=== PATIENT | female | born 1940 ===

== ENCOUNTER 2023-01-29 14:16 | Inpatient (IN) ==
[~2023-01-29 14:16] MED LIST: DEXAMETHASONE 10 MG/ML VIAL ONE; GLYCOPYRROLATE 0.2 MG/ML VIAL IV ONE; LIDOCAINE HCL/PF 100 MG/5 ML SYRINGE IV ONE; MIDAZOLAM 2 MG/2 ML VIAL ONE; NEOSTIGMINE 1 MG/ML VIAL ONE; ONDANSETRON 4 MG/2 ML VIAL ONE; PROPOFOL 200 MG/20 ML VIAL IV ONE; ROCURONIUM 10 MG/ML ML IV ONE; SUCCINYLCHOLINE 20 MG/ML ML IV ONE; fentaNYL 100 MCG/2 ML VIAL IV ONE
[2023-01-29] MEDS ORDERED: IOPAMIDOL 100 ML BOTTLE IV ONE (17:24)
[2023-01-29] MEDS: 0.9 % SODIUM CHLORIDE 1,000 ML IV SCH (17:46)
[2023-01-29] MEDS: metroNIDAZOLE 500 MG/100 ML BAG IV SCH ×2 (17:50→23:33)
--- NOTE | 2023-01-29 17:50 | General Surg History&Physical ---
HPI History of Present Illness Patient information: Note initiated : 01/29/23 at 5:33 pm Service Date, if different from initiated Date: [] Patient: Kathy Parks a 82 y/o F admitted on 01/29/23 for Bowel Obstruction. Chief Complaint: [] Chief complaint: Rectal carcinoma with colonic obstruction History of present illness: Ms. Parks is a 82 year old F transferred from [facility] for evaluation rectal obstruction due to carcinoma of the colon rectum. Patient has known carcinoma and has been treated at hospital in [facility] with radiation. The patient refused to take chemotherapy. She has been having problems with progressive constipation and states that she has not been able to have a bowel movement for 1-1/2 weeks. She has had increasing difficulty with abdominal distention and pain. She was treated at [facility] today with enemas and digital impaction without results. The patient is sent here for decompression colostomy as a palliative measure. She has known metastatic carcinoma to the liver and is felt to be unresectable. Patient and her daughter are counseled for the procedure and it will be performed tomorrow. Review of Systems All systems: reviewed and no additional remarkable complaints except as stated Gastrointestinal Gastrointestinal: Present abdominal pain, belching, bloating, change in bowel habits, change in stool character, constipation, cramping, hematemesis, hematochezia and nausea PFSH PFSH All Active Problems (Updated 01/29/23 @ 17:48 by René Yates MD) Liver metastases (Acute) Carcinoma of rectum, stage 4 (Acute) Colonic obstruction (Acute) Hypertension (Acute) Medical History (Updated 01/29/23 @ 17:48 by René Yates MD) Carcinoma of rectum, stage 4 History of CVA (cerebrovascular accident) History of DVT (deep vein thrombosis) History of pulmonary embolus (PE) Surgical History (Updated 01/29/23 @ 17:42 by René Yates MD) H/O: hysterectomy History of parathyroidectomy S/P appendectomy S/P insertion of IVC (inferior vena caval) filter Social History (Updated 01/29/23 @ 17:43 by René Yates MD) occupational status: retired smoking status: Never smoker alcohol intake frequency: does not drink substance use type: does not use MEDS/ALLERGIES Home Medications and Allergies Home Medications Medication Instructions Recorded Confirmed Type Lactobacillus rhamnosus GG 15 1 cap PO QDAY 01/29/23 01/29/23 History billion cell sprinkle capsule (Culturelle) amlodipine 10 mg tablet 5 mg PO QDAY 01/29/23 01/29/23 History aspirin 81 mg tablet,delayed 81 mg PO QDAY 01/29/23 01/29/23 History release famotidine 40 mg tablet 40 mg PO BID 01/29/23 01/29/23 History furosemide 40 mg tablet 40 mg PO QDAY 01/29/23 01/29/23 History hydrocodone 5 mg-acetaminophen 325 5 tab PO PRN PRN pain 01/29/23 01/29/23 History mg tablet losartan 50 mg tablet 50 mg PO QDAY 01/29/23 01/29/23 History omeprazole 20 mg capsule,delayed 20 mg PO QDAY 01/29/23 01/29/23 History release polysaccharide iron complex 150 mg 150 mg PO QDAY 01/29/23 01/29/23 History iron capsule (iFerex 150) pravastatin 20 mg tablet 20 mg PO HS 01/29/23 01/29/23 History tamsulosin 0.4 mg capsule 0.4 mg PO QDAY 01/29/23 01/29/23 History Allergies Allergy/AdvReac Type Severity Reaction Status Date / Time No Known Drug Allergies Allergy Unverified 01/29/23 16:19 Physical Examination Vital Signs Vital signs: Temp Pulse Resp BP Pulse Ox O2 Del Method 97.1 F 73 20 198/93 93 Room Air 01/29/23 17:00 01/29/23 17:00 01/29/23 17:00 01/29/23 17:00 01/29/23 17:00 01/29/23 17:00 General physical appearance General physical exam: well developed, well nourished, moderate distress and moderate pain Eyes Eye exam: PERRL and normal ocular movement; negative icteric ENT ENT exam: normal mucosa, no hearing loss and no congestion Head Head exam IM: Present atraumatic, normal inspection and normocephalic Neck Neck exam: no masses, no bruits, trachea midline, no lymphadenopathy and no venous distension Cardiovascular Cardiovascular exam IM: Present normal rate and rhythm, RRR, +S1 and +S2; Absent gallop or JVD Respiratory Respiratory exam: normal expansion, normal respiratory effort and clear to auscultation Abdomen Abdomen: Present tender, bowel sounds (high pitched) and distended (Massively distended) Integumentary Integumentary: Present no rash, no growths and no abnormal pigmentation Neurologic Neurologic: Present normal coordination and normal sensation Musculoskeletal Musculoskeletal: Absent normal gait (Gait assisted with walker) Psychiatric Psychiatric: Present oriented to time, oriented to person, oriented to place, speech is normal and memory intact Results Labs Labs: All other labs normal. A/P Assessment and plan (1) Colonic obstruction: Status: Acute (2) Carcinoma of rectum, stage 4: Status: Acute (3) Hypertension: Status: Acute (4) Liver metastases: Status: Acute Plan Patient is counseled for laparotomy with end colostomy and probable mucous fistula because of obstructing carcinoma of the rectum. If I can resect the colon close to the tumor a mucous fistula will not need to be performed. It is understood that this is a invasive procedure to relieve her total obstruction. Sepsis Sepsis Identified: No Time Spent With Patient Time: Total time spent is greater than 50% in coordination of care (as documented) at patient's floor/unit and/or counseling patient:
[2023-01-29] MEDS ORDERED: PIPERACILLIN SODIUM/TAZOBACTAM 3.375 GM in DEXTROSE 5% IN WATER 50 ML IV ONE (18:00)
--- NOTE | 2023-01-29 18:07 | XRay Report ---
CLINICAL INFORMATION: Preop COMPARISON: None. TECHNIQUE: Portable FINDINGS: The heart size, mediastinum and pulmonary vessels are unremarkable. Minor fibrosis and/or subsegmental atelectasis present in the lung bases.. There are no effusions. The bones and soft tissues are within normal limits. IMPRESSION: Normal chest. Interpreted and Authenticated by: Ady Steel 01/29/23
--- NOTE | 2023-01-29 18:22 | Cat Scan Report ---
CLINICAL INFORMATION: Abdominal pain and distention. COMPARISON: Abdomen and pelvic CT 07/20/2022 TECHNIQUE: Following enteric contrast, 80 cc of Isovue-370 were injected intravenously, and 60 seconds later, 0.625 mm helical slices were obtained from the mid heart through the subtrochanteric regions. Following reconstruction, 2.5 mm sagittal, coronal and axial reformatted images were processed and reviewed at bone, lung and soft tissue windows. Five minutes later, 0.625 mm helical slices were obtained from the mid heart through the kidneys and viewed at soft tissue windows.The exam was performed using radiation dose optimization techniques including, but not limited to, automated exposure control, adjustment of the mA and/or kV according to patient size and use of iterative reconstruction technique. FINDINGS: The lung bases show subsegmental atelectasis. The heart is moderately enlarged with extremely heavy calcific plaque in the proximal and mid LAD coronary arteries. There is also scattered calcific plaque throughout the remaining coronary arteries. Small pericardial effusion has developed since previous exam. Abdominal images show a new 9 cm inhomogeneously enhancing mass dominating the posterior segment right hepatic lobe. There is also a new 12 mm low-attenuation nodule in the subdiaphragmatic superior right hepatic lobe. Findings suspicious for metastases. A 19 mm solitary stone present within the gallbladder. Gallbladder and bile ducts are, otherwise, normal CBD is 5 mm. The 10 mm cyst in the posterior mid pancreatic body is unchanged. Pancreatic duct is normal. The spleen and adrenal glands are normal in size configuration and attenuation without focal lesion. Abdominal aorta contains plaque but is normal diameter. A 13 mm nonobstructing stone present inferior calyx left kidney and a 15 mm nonobstructing stone inferior calyx right kidney. A 2 mm nonobstructing stone within a mid calyx left kidney. Scattered small renal cysts are stable. Pelvic images show urinary bladder to be slightly distended with mild diffuse wall thickening. Hysterectomy/ oophorectomy changes noted. There is a 3 cm stricture at the rectosigmoid colon. In this region, there is moderate concentric wall thickening which may represent annular adenocarcinoma. It results in partial colonic obstruction. The superior colon is moderately dilated with large amount stool. Small bowel and stomach are normal. There is no free air, free fluid or adenopathy. Bone windows show no osteolytic lesions-only degenerative change lumbar spine. IMPRESSION: 1. 3 cm stricture at the rectosigmoid junction with concentric wall thickening. This may represent benign stricture however annular malignant adenocarcinoma is also possible. It results in partial colonic obstruction with moderate colonic dilatation. There is also moderate edema in the perirectal fat. Suggest endoscopy 2. New 9 cm inhomogeneous low attenuation mass dominating the posterior right hepatic lobe. 12 mm nodule in the subdiaphragmatic superior right hepatic lobe. These are suspicious for metastases-possibly from colon carcinoma. Suggest ultrasound-guided biopsy of the largest lesion for tissue diagnosis. 3. Solitary 19 mm stone in the gallbladder. Bile ducts are normal. 4. Nonobstructing stones in both kidneys-as previously seen. 5. Moderate cardiomegaly with small pericardial effusion. Interpreted and Authenticated by: Ady Steel 01/29/23
[2023-01-29] MEDS: HYDROmorphone 1 MG/ML SYRINGE IV PRN (18:55)
[2023-01-29] MEDS: PROMETHAZINE 25 MG/ML VIAL IV PRN (18:56)
[2023-01-29] MEDS ORDERED: LOSARTAN 50 MG TABLET PO ONE (20:03)
[2023-01-29] MEDS ORDERED: amLODIPine 5 MG TABLET PO ONE (20:03)
[2023-01-29] MEDS: 0.9 % SODIUM CHLORIDE 10 ML SYRINGE IV SCH (20:39)
[2023-01-29] MEDS ORDERED: IPRATROPIUM/ALBUTEROL 3 ML AMPUL.NEB NEB PRN (22:36)
[2023-01-29] MEDS ORDERED: SCOPOLAMINE 1 PATCH PATCH TOPICAL PRN (22:36)
[2023-01-30] MEDS: 0.9 % SODIUM CHLORIDE 1,000 ML IV SCH ×5 (00:08→21:24)
[2023-01-30] MEDS: HYDROmorphone 1 MG/ML SYRINGE IV PRN ×4 (00:10→21:24)
[2023-01-30] MEDS: PIPERACILLIN SODIUM/TAZOBACTAM 3.375 GM in DEXTROSE 5% IN WATER 50 ML IV SCH ×5 (00:49→23:12)
[2023-01-30] MEDS: 0.9 % SODIUM CHLORIDE 10 ML SYRINGE IV SCH ×3 (05:00→20:32)
[2023-01-30] MEDS: metroNIDAZOLE 500 MG/100 ML BAG IV SCH ×4 (05:03→23:12)
[2023-01-30 07:43] LABS: Basophils # (Auto) 0.02 K/mcL (0.00-0.30); Basophils % (Auto) 0.3 % (0.0-2.0); Eosinophils # (Auto) 0.17 K/mcL (0.00-0.70); Eosinophils % (Auto) 2.8 % (0.0-7.0); Hemoglobin 9.4 g/dL (11.2-15.7); Lymphocytes # (Auto) 0.57 K/mcL (1.50-4.80); Lymphocytes % (Auto) 9.4 % (15.5-49.0); Mean Cell Volume 81.8 fL (80.0-100.0); Mean Corpuscular HGB Conc 29.4 g/dL (31.0-36.0); Mean Platelet Volume 9.8 fL (8.8-12.5); Monocytes # (Auto) 0.58 K/mcL (0.10-0.90); Monocytes % (Auto) 9.5 % (1.0-12.0); Neutrophils % (Auto) 77.5 % (38.0-78.0); Platelet Count 423 K/mcL (140-440); RBC 3.91 M/mcL (3.59-5.38); Red Cell Distribution Width 15.5 % (11.5-14.5); WBC 6.1 K/mcL (4.5-11.0)
[2023-01-30] MEDS ORDERED: ROPIVACAINE HCL/PF 30 ML VIAL IJ ONE (08:00)
[2023-01-30] MEDS ORDERED: HYDROmorphone 0.5 MG/0.5 ML SYRINGE IV PRN (08:46)
[2023-01-30] MEDS ORDERED: IPRATROPIUM/ALBUTEROL 3 ML AMPUL.NEB NEB PRN (08:46)
[2023-01-30] MEDS ORDERED: ONDANSETRON 4 MG/2 ML VIAL IV PRN (08:46)
[2023-01-30] MEDS ORDERED: fentaNYL 100 MCG/2 ML VIAL IV PRN (08:46)
[2023-01-30] MEDS ORDERED: ACETAMINOPHEN 1,000 MG/100 ML BAG IV ONE (08:46)
[2023-01-30] MEDS ORDERED: ENOXAPARIN 40 MG/0.4 ML SYRINGE SQ SCH (09:00)
--- NOTE | 2023-01-30 09:40 | Brief Operative Note ---
Brief Operative Note Date of procedure: 01/30/23 Pre-op diagnosis: colorectal obstruction;rectal carcinoma Post-op diagnosis: other (colorectal obstruction;rectal carcinoma) Procedure: DIVERTING COLOSTOMY Grafts/Implants: No Anesthesia: GETA Findings: VERY HARD BULKY NEOPLASM AT RECTOSIGMOID JUNCTION WITH NEAR TOTAL OBSTRUCTION DILATED COLON WITH NORMAL SIZED SMALL BOWEL Complications: none Surgeon: René Yates Estimated blood loss (cc): 20 Specimens Removed/Pathology: none sent Condition: stable Disposition: PACU
[2023-01-30] MEDS ORDERED: LOSARTAN 50 MG TABLET PO SCH ×2 (14:00→14:45)
[2023-01-30] MEDS: FAMOTIDINE 20 MG TABLET PO SCH (20:32)
[2023-01-30] MEDS: SIMVASTATIN 10 MG TABLET PO SCH (20:32)
[2023-01-31] MEDS: 0.9 % SODIUM CHLORIDE 1,000 ML IV SCH ×4 (00:02→23:20)
[2023-01-31] MEDS: HYDROmorphone 1 MG/ML SYRINGE IV PRN ×4 (01:48→17:49)
[2023-01-31] MEDS ORDERED: ACETAMINOPHEN 1,000 MG/100 ML BAG IV ONE (02:43)
[2023-01-31] MEDS: ACETAMINOPHEN 1,000 MG/100 ML BAG IV SCH ×5 (02:47→23:20)
[2023-01-31] MEDS: metroNIDAZOLE 500 MG/100 ML BAG IV SCH ×4 (05:47→23:20)
[2023-01-31] MEDS: 0.9 % SODIUM CHLORIDE 10 ML SYRINGE IV SCH ×3 (05:47→21:16)
[2023-01-31] MEDS: PIPERACILLIN SODIUM/TAZOBACTAM 3.375 GM in DEXTROSE 5% IN WATER 50 ML IV SCH ×4 (05:47→23:20)
[2023-01-31 06:34] LABS: Basophils # (Auto) 0.01 K/mcL (0.00-0.30); Basophils % (Auto) 0.1 % (0.0-2.0); Eosinophils # (Auto) 0 K/mcL (0.00-0.70); Eosinophils % (Auto) 0 % (0.0-7.0); Hematocrit 29.6 % (34.1-44.9); Hemoglobin 8.9 g/dL (11.2-15.7); Lymphocytes % (Auto) 5.8 % (15.5-49.0); Mean Cell Volume 81.5 fL (80.0-100.0); Mean Corpuscular HGB Conc 30.1 g/dL (31.0-36.0); Mean Platelet Volume 9.4 fL (8.8-12.5); Monocytes # (Auto) 0.71 K/mcL (0.10-0.90); Monocytes % (Auto) 6.8 % (1.0-12.0); Neutrophils % (Auto) 86.9 % (38.0-78.0); Platelet Count 440 K/mcL (140-440); RBC 3.63 M/mcL (3.59-5.38); Red Cell Distribution Width 15.4 % (11.5-14.5); WBC 10.4 K/mcL (4.5-11.0)
[2023-01-31 07:26] LABS: ALT/SGPT 9 U/L (<40); AST/SGOT 18 U/L (<32); Albumin/Globulin Ratio 1.2 (1.0-2.3); Alkaline Phosphatase 63 U/L (39-117); Bilirubin,Direct < 0.2 mg/dL (0-0.3); Bilirubin,Total 0.3 mg/dL (0.1-1.0); Blood Urea Nitrogen 15 mg/dL (8-23); Calcium 9.2 mg/dL (8.6-10.4); Carbon Dioxide 24 mmol/L (22-30); Chloride 105 mmol/L (96-108); Globulin 2.6 gm/dL (2.2-3.7); Glomerular Filtration Rate 82; Glucose 95 mg/dL (70-105); Lactate Dehydrogenase 295 U/L (135-225); Phosphorous 3.5 mg/dL (2.5-4.5); Triglycerides 51 mg/dL (<150); Uric Acid 2.7 mg/dL (2.5-8.0)
[2023-01-31] MEDS: IRON POLYSACCHARIDE COMPLEX 150 MG CAPSULE PO SCH (08:30)
[2023-01-31] MEDS: LACTOBACILLUS 1 CAPSULE PO SCH (08:31)
[2023-01-31] MEDS: FUROSEMIDE 40 MG TABLET PO SCH (08:31)
[2023-01-31] MEDS: LOSARTAN 50 MG TABLET PO SCH (08:31)
[2023-01-31] MEDS: amLODIPine 5 MG TABLET PO SCH (08:31)
[2023-01-31] MEDS: FAMOTIDINE 20 MG TABLET PO SCH ×2 (08:31→20:26)
[2023-01-31] MEDS: TAMSULOSIN 0.4 MG CAPSULE PO SCH (08:32)
[2023-01-31] MEDS: OMEPRAZOLE 20 MG CAPSULE PO SCH (08:32)
[2023-01-31] MEDS: ASPIRIN 81 MG TAB.CHEW CHEWED SCH (08:32)
--- NOTE | 2023-01-31 11:53 | General Surgery Progress Note ---
SUBJECTIVE Subjective Patient information: Note initiated : 01/31/23 at 11:50 am Service Date, if different from initiated Date: [] Patient: Kathy Parks 82 y/o F admitted on 01/29/23 for Bowel Obstruction. Chief Complaint: [] Interval history: Patient states that she is improved. She only complains of discomfort from the nasogastric tube. She denies nausea. White blood count is 10.4 hemoglobin 8 hematocrit 29.6. BUN and creatinine are normal Constitutional Vitals: Vital Signs Temp Pulse Resp BP Pulse Ox O2 Del Method O2 Flow Rate 98.2 F 66 18 164/74 92 Room Air 2 01/31/23 11:22 01/31/23 11:22 01/31/23 11:22 01/31/23 11:22 01/31/23 11:22 01/31/23 11:22 01/31/23 00:00 Period Temp Pulse Resp BP Sys/Aquino Pulse Ox O2 Del Method O2 Flow Rate Last 24 Hr 98.2 F-98.9 F 65-91 14-20 140-169/73-95 90-96 Nasal Cannula- Room Air 1-4 Intake and Output 01/30/23 01/31/23 01/31/23 19:59 03:59 11:59 Intake Total 9185 259 1201 Output Total 1052 400 100 Balance 198 -150 1150 Weight 165 lb 11.2 oz 168 lb 8 oz Intake & Output: Intake & Output 01/30/23 01/31/23 01/31/23 19:59 03:59 11:59 Intake Total 1995 607 6573 Output Total 1052 400 100 Balance 198 -150 1150 Weight 165 lb 11.2 oz 168 lb 8 oz Intake: IV 9798 143 7302 Sodium Chloride 0.9% 1,000 ml @ 1000 1000 125 mls/hr IV .Q8H LISET Rx#: [id number] Zosyn 3.375 gm In Dextrose 5% 50 50 50 in Water 50 ml @ 100 mls/hr IV Q6H LISET Rx#:[id number] Tube Feeding 0 Output: Gastric Drainage 0 100 Right Nare 0 100 Urine Catheter Amount 1000 400 # of times incontinent of urine 2 Stool 50 Other: Urine Appearance Clear Clear Uretheral (Mar) Clear Clear Urine Color Yellow Yellow Uretheral (Mar) Yellow Yellow Urine Odor Normal Uretheral (Mar) Normal Normal Stool Size Small Stool Color Brown Stool Consistency Soft # Voids 100 ENT ENT exam: Present normal external ear exam and normal oropharynx Neck Neck exam: Present normal inspection Respiratory Respiratory exam: Present normal respiratory exam and CTAB Cardiovascular Cardiovascular exam: Present normal rate and rhythm, RRR, +S1 and +S2; Absent JVD GI/Abdominal GI/Abdominal exam: Present normal bowel sounds and soft; Absent distended Additional comments: Stoma is healthy and is functioning Extremities Exam Extremities exam: Present normal inspection and neurovascular intact Neurological Exam Neurological exam: Present oriented X3; Absent motor sensory deficit Psychiatric Psychiatric exam: Present normal affect and normal mood A/P Assessment and plan (1) Colonic obstruction: Status: Acute (2) Carcinoma of rectum, stage 4: Status: Acute (3) Liver metastases: Status: Acute Plan discontinue nasogastric tube 2 view abdominal x-ray in the morning KCl rider Time Spent With Patient Time: Total time spent is greater than 50% in coordination of care (as documented) at patient's floor/unit and/or counseling patient:
[2023-01-31] MEDS ORDERED: POTASSIUM CHLORIDE 40 MEQ in DEXTROSE 5% IN WATER 500 ML IV SCH (13:00)
[2023-01-31] MEDS: SIMVASTATIN 10 MG TABLET PO SCH (20:26)
[2023-02-01] MEDS: HYDROmorphone 1 MG/ML SYRINGE IV PRN ×4 (02:28→18:03)
[2023-02-01] MEDS: PIPERACILLIN SODIUM/TAZOBACTAM 3.375 GM in DEXTROSE 5% IN WATER 50 ML IV SCH ×3 (05:04→17:35)
[2023-02-01] MEDS: metroNIDAZOLE 500 MG/100 ML BAG IV SCH ×3 (05:04→17:34)
[2023-02-01] MEDS: ACETAMINOPHEN 1,000 MG/100 ML BAG IV SCH ×5 (05:04→23:56)
[2023-02-01] MEDS: 0.9 % SODIUM CHLORIDE 10 ML SYRINGE IV SCH ×3 (06:12→20:29)
[2023-02-01 07:10] LABS: Basophils # (Auto) 0.03 K/mcL (0.00-0.30); Basophils % (Auto) 0.4 % (0.0-2.0); Eosinophils # (Auto) 0.34 K/mcL (0.00-0.70); Eosinophils % (Auto) 4.2 % (0.0-7.0); Hematocrit 30.1 % (34.1-44.9); Hemoglobin 8.9 g/dL (11.2-15.7); Lymphocytes # (Auto) 0.76 K/mcL (1.50-4.80); Lymphocytes % (Auto) 9.4 % (15.5-49.0); Mean Corpuscular HGB Conc 29.6 g/dL (31.0-36.0); Mean Platelet Volume 9.2 fL (8.8-12.5); Monocytes # (Auto) 0.58 K/mcL (0.10-0.90); Monocytes % (Auto) 7.2 % (1.0-12.0); Neutrophils % (Auto) 78.2 % (38.0-78.0); Platelet Count 450 K/mcL (140-440); RBC 3.67 M/mcL (3.59-5.38); Red Cell Distribution Width 15.5 % (11.5-14.5); WBC 8.1 K/mcL (4.5-11.0)
[2023-02-01] MEDS: OMEPRAZOLE 20 MG CAPSULE PO SCH (07:23)
[2023-02-01 07:49] LABS: ALT/SGPT 9 U/L (<40); AST/SGOT 17 U/L (<32); Albumin/Globulin Ratio 1.3 (1.0-2.3); Alkaline Phosphatase 64 U/L (39-117); Bilirubin,Direct < 0.2 mg/dL (0-0.3); Bilirubin,Total 0.2 mg/dL (0.1-1.0); Blood Urea Nitrogen 12 mg/dL (8-23); Calcium 9.2 mg/dL (8.6-10.4); Carbon Dioxide 23 mmol/L (22-30); Chloride 105 mmol/L (96-108); Globulin 2.4 gm/dL (2.2-3.7); Glomerular Filtration Rate 86; Glucose 117 mg/dL (70-105); Lactate Dehydrogenase 296 U/L (135-225); Phosphorous 1.6 mg/dL (2.5-4.5); Triglycerides 53 mg/dL (<150)
[2023-02-01] MEDS: ONDANSETRON 4 MG/2 ML VIAL IV PRN (08:59)
[2023-02-01] MEDS: POTASSIUM CHLORIDE 40 MEQ in DEXTROSE 5% IN WATER 500 ML IV SCH ×2 (09:01→13:05)
[2023-02-01] MEDS: 0.9 % SODIUM CHLORIDE 1,000 ML IV SCH ×2 (09:01→12:15)
[2023-02-01] MEDS: LOSARTAN 50 MG TABLET PO SCH (09:35)
[2023-02-01] MEDS: TAMSULOSIN 0.4 MG CAPSULE PO SCH (09:35)
[2023-02-01] MEDS: FUROSEMIDE 40 MG TABLET PO SCH (09:35)
[2023-02-01] MEDS: LACTOBACILLUS 1 CAPSULE PO SCH (09:35)
[2023-02-01] MEDS: FAMOTIDINE 20 MG TABLET PO SCH ×2 (09:35→20:28)
[2023-02-01] MEDS: amLODIPine 5 MG TABLET PO SCH (09:36)
[2023-02-01] MEDS: IRON POLYSACCHARIDE COMPLEX 150 MG CAPSULE PO SCH (09:36)
[2023-02-01] MEDS: ASPIRIN 81 MG TAB.CHEW CHEWED SCH (09:37)
--- NOTE | 2023-02-01 12:30 | XRay Report ---
CLINICAL INFORMATION: Distal colonic obstruction COMPARISON: Abdomen and pelvic CT 01/29/2023 FINDINGS: Small bowel is mildly dilated with scattered air-fluid levels. Moderate amount of stool present within the colon, particularly the right colon, as previously seen. No free air or soft tissue mass. IMPRESSION: Nonspecific stool gas pattern. Stricture at the rectosigmoid junction acknowledged on recent CT would predispose patient to distal colonic obstruction. Consider: Hypaque enema Interpreted and Authenticated by: Ady Steel 02/01/23
--- NOTE | 2023-02-01 13:28 | General Surgery Progress Note ---
SUBJECTIVE Subjective Patient information: Note initiated : 02/01/23 at 1:25 pm Service Date, if different from initiated Date: [] Patient: Kathy Parks 82 y/o F admitted on 01/29/23 for Bowel Obstruction. Chief Complaint: [] Principal diagnosis: Rectal carcinoma Interval history: Patient is doing well. Her pain is controlled. She denies nausea. Her stoma is functioning well. Abdominal x-rays revealed large fecal burden. Constitutional Vitals: Vital Signs Temp Pulse Resp BP Pulse Ox O2 Del Method O2 Flow Rate 97.3 F 64 16 176/85 95 Room Air 2 02/01/23 11:42 02/01/23 11:42 02/01/23 11:42 02/01/23 11:42 02/01/23 11:42 02/01/23 11:42 01/31/23 00:00 Period Temp Pulse Resp BP Sys/Aquino Pulse Ox O2 Del Method O2 Flow Rate Last 24 Hr 97.3 F-98.2 F 64-70 14-18 100-176/63-85 92-95 Room Air-Room Air Intake and Output 02/01/23 02/01/23 02/01/23 03:59 11:59 19:59 Intake Total 730 1730 1000 Output Total 1000 1500 Balance -537 756 2430 Weight 172 lb 12.8 oz Intake & Output: Intake & Output 02/01/23 02/01/23 02/01/23 03:59 11:59 19:59 Intake Total 730 1730 1000 Output Total 1000 1500 Balance -692 498 1813 Weight 172 lb 12.8 oz Intake: IV 250 1250 1000 Sodium Chloride 0.9% 1,000 ml @ 1000 330 125 mls/hr IV .Q8H LISET Rx#: [id number] Zosyn 3.375 gm In Dextrose 5% 50 50 50 in Water 50 ml @ 100 mls/hr IV Q6H LISET Rx#:[id number] Potassium Chloride 40 Meq In 520 Dextrose 5% in Water 500 ml @ 130 mls/hr IV 0900,1300 LISET Rx# :[id number] Oral 480 480 Output: Urine Catheter Amount 1000 1400 Emesis 100 Other: Meal Breakfast Percent of Meal Consumed 75% Feeding Ability Assist with Tray Set Up Urine Appearance Clear Uretheral (Mar) Clear Urine Color Yellow Yellow Uretheral (Mar) Yellow Urine Odor Normal Normal Uretheral (Mar) Normal Neck Neck exam: Present normal inspection Respiratory Respiratory exam: Present normal respiratory exam and CTAB Cardiovascular Cardiovascular exam: Present normal rate and rhythm, RRR, +S1 and +S2; Absent JVD GI/Abdominal GI/Abdominal exam: Present normal bowel sounds and distended (Mild distention persists) Extremities Exam Extremities exam: Present normal inspection and neurovascular intact Neurological Exam Neurological exam: Present alert and oriented X3; Absent motor sensory deficit Psychiatric Psychiatric exam: Present normal affect and normal mood A/P Assessment and plan (1) Colonic obstruction: Status: Acute (2) Carcinoma of rectum, stage 4: Status: Acute (3) Liver metastases: Status: Acute Plan MiraLAX 24 hours x 4 doses Replace potassium phosphate Repeat abdominal x-ray in the morning Time Spent With Patient Time: Total time spent is greater than 50% in coordination of care (as documented) at patient's floor/unit and/or counseling patient:
[2023-02-01] MEDS ORDERED: POLYETHYLENE GLYCOL 3350 17 GM PACKET PO SCH ×2 (14:00→17:30)
[2023-02-01] MEDS: METOCLOPRAMIDE 10 MG/2 ML VIAL IV SCH ×3 (14:05→23:56)
[2023-02-01] MEDS: METHYLNALTREXONE BROMIDE 12 MG/0.6 ML SYRINGE SQ SCH (14:41)
[2023-02-01] MEDS: NEUTRA PHOS 1 PACKET PO SCH ×2 (16:26→20:28)
[2023-02-01] MEDS: POLYETHYLENE GLYCOL 3350 17 GM PACKET PO SCH ×2 (18:03→21:47)
[2023-02-01] MEDS: SIMVASTATIN 10 MG TABLET PO SCH (20:28)
--- NOTE | 2023-02-01 20:29 | EKG ---
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
[2023-02-02] MEDS: PIPERACILLIN SODIUM/TAZOBACTAM 3.375 GM in DEXTROSE 5% IN WATER 50 ML IV SCH ×4 (00:26→17:34)
[2023-02-02] MEDS: metroNIDAZOLE 500 MG/100 ML BAG IV SCH ×4 (00:26→19:36)
[2023-02-02] MEDS: POLYETHYLENE GLYCOL 3350 17 GM PACKET PO SCH ×3 (01:45→10:00)
[2023-02-02] MEDS: 0.9 % SODIUM CHLORIDE 10 ML SYRINGE IV SCH ×3 (05:09→20:15)
[2023-02-02] MEDS: ACETAMINOPHEN 1,000 MG/100 ML BAG IV SCH ×3 (05:09→18:15)
[2023-02-02] MEDS: METOCLOPRAMIDE 10 MG/2 ML VIAL IV SCH ×3 (05:41→17:30)
[2023-02-02 06:30] LABS: Basophils # (Auto) 0.02 K/mcL (0.00-0.30); Basophils % (Auto) 0.3 % (0.0-2.0); Eosinophils # (Auto) 0.35 K/mcL (0.00-0.70); Eosinophils % (Auto) 5.9 % (0.0-7.0); Hematocrit 31.1 % (34.1-44.9); Hemoglobin 9.3 g/dL (11.2-15.7); Lymphocytes # (Auto) 0.79 K/mcL (1.50-4.80); Lymphocytes % (Auto) 13.4 % (15.5-49.0); Mean Cell Volume 80.4 fL (80.0-100.0); Mean Corpuscular HGB Conc 29.9 g/dL (31.0-36.0); Mean Platelet Volume 9.4 fL (8.8-12.5); Monocytes # (Auto) 0.53 K/mcL (0.10-0.90); Neutrophils % (Auto) 70.7 % (38.0-78.0); Platelet Count 464 K/mcL (140-440); RBC 3.87 M/mcL (3.59-5.38); Red Cell Distribution Width 15.8 % (11.5-14.5); WBC 5.9 K/mcL (4.5-11.0)
[2023-02-02 07:10] LABS: ALT/SGPT 8 U/L (<40); AST/SGOT 15 U/L (<32); Albumin 2.8 gm/dL (3.2-5.2); Albumin/Globulin Ratio 1.1 (1.0-2.3); Alkaline Phosphatase 66 U/L (39-117); Bilirubin,Direct < 0.2 mg/dL (0-0.3); Bilirubin,Total 0.2 mg/dL (0.1-1.0); Blood Urea Nitrogen 9 mg/dL (8-23); Calcium 8.8 mg/dL (8.6-10.4); Carbon Dioxide 24 mmol/L (22-30); Chloride 104 mmol/L (96-108); Globulin 2.5 gm/dL (2.2-3.7); Glomerular Filtration Rate 91; Glucose 82 mg/dL (70-105); Lactate Dehydrogenase 321 U/L (135-225); Phosphorous 1.8 mg/dL (2.5-4.5); Triglycerides 78 mg/dL (<150); Uric Acid 1.5 mg/dL (2.5-8.0)
[2023-02-02] MEDS: OMEPRAZOLE 20 MG CAPSULE PO SCH (07:24)
[2023-02-02] MEDS: 0.9 % SODIUM CHLORIDE 1,000 ML IV SCH (07:25)
[2023-02-02] MEDS: ASPIRIN 81 MG TAB.CHEW CHEWED SCH (08:25)
[2023-02-02] MEDS: NEUTRA PHOS 1 PACKET PO SCH ×2 (08:25→20:17)
[2023-02-02] MEDS: FAMOTIDINE 20 MG TABLET PO SCH ×2 (08:25→20:17)
[2023-02-02] MEDS: TAMSULOSIN 0.4 MG CAPSULE PO SCH (08:25)
[2023-02-02] MEDS: FUROSEMIDE 40 MG TABLET PO SCH (08:25)
[2023-02-02] MEDS: IRON POLYSACCHARIDE COMPLEX 150 MG CAPSULE PO SCH (08:26)
[2023-02-02] MEDS: LACTOBACILLUS 1 CAPSULE PO SCH (08:26)
[2023-02-02] MEDS: amLODIPine 5 MG TABLET PO SCH (08:26)
[2023-02-02] MEDS: LOSARTAN 50 MG TABLET PO SCH (08:28)
[2023-02-02] MEDS ORDERED: POLYETHYLENE GLYCOL 3350 17 GM PACKET PO SCH ×2 (09:00)
[2023-02-02] MEDS: METHYLNALTREXONE BROMIDE 12 MG/0.6 ML SYRINGE SQ SCH (14:56)
--- NOTE | 2023-02-02 15:03 | General Surgery Progress Note ---
SUBJECTIVE Subjective Patient information: Note initiated : 02/02/23 at 3:00 pm Service Date, if different from initiated Date: [] Patient: Kathy Parks 82 y/o F admitted on 01/29/23 for Bowel Obstruction. Chief Complaint: [] Principal diagnosis: Rectal carcinoma Interval history: Patient is doing well. She states that she is uncomfortable except for sensation of fullness. She has a small amount of flatus and liquid bowel movement but has not had any solid bowel movement. White blood count 5.9, hemoglobin 9.3, hematocrit 31, potassium 3, phosphorus 1.8, magnesium 1.5, BUN 9. Constitutional Vitals: Vital Signs Temp Pulse Resp BP Pulse Ox O2 Del Method O2 Flow Rate 98.2 F 74 18 172/87 96 Room Air 2 02/02/23 12:00 02/02/23 11:36 02/02/23 11:36 02/02/23 11:36 02/02/23 11:36 02/02/23 11:36 02/02/23 06:02 Period Temp Pulse Resp BP Sys/Aquino Pulse Ox O2 Del Method O2 Flow Rate Last 24 Hr 97.2 F-98.2 F 66-74 16-18 152-172/77-100 92-98 Room Air-Room Air 2 Intake and Output 02/02/23 02/02/23 02/02/23 03:59 11:59 19:59 Intake Total 250 2298 200 Output Total 900 1750 2550 Balance -650 548 -2350 Intake & Output: Intake & Output 02/02/23 02/02/23 02/02/23 03:59 11:59 19:59 Intake Total 250 2298 200 Output Total 900 1750 2550 Balance -650 548 -2350 Intake: IV 250 1258 200 Sodium Chloride 0.9% 1,000 ml @ 958 50 mls/hr IV .Q20H LISET Rx#: [id number] Zosyn 3.375 gm In Dextrose 5% 50 100 in Water 50 ml @ 100 mls/hr IV Q6H LISET Rx#:[id number] Oral 1040 Output: Urine Catheter Amount 900 1750 2550 Other: Meal Breakfast Percent of Meal Consumed 100% Feeding Ability Assist with Tray Set Up Urine Appearance Clear Clear Clear Uretheral (Mar) Clear Urine Color Bright Yellow Pale Yellow Uretheral (Mar) Yellow Pale Urine Odor Normal Uretheral (Mar) Normal Stool Size Small Stool Color Brown Stool Consistency Liquid Neck Neck exam: Present normal inspection Respiratory Respiratory exam: Present normal respiratory exam and CTAB Cardiovascular Cardiovascular exam: Present JVD, RRR, +S1 and +S2 GI/Abdominal GI/Abdominal exam: Present normal bowel sounds and distended; Absent tenderness Additional comments: Stoma is patent and functioning with gas and liquid stool Extremities Exam Extremities exam: Present normal inspection and neurovascular intact A/P Assessment and plan (1) Carcinoma of rectum, stage 4: Status: Acute (2) Liver metastases: Status: Acute (3) Adynamic ileus: Status: Acute Plan Continue to monitor Replace potassium phosphorus and magnesium 2 view abdominal x-ray in the morning Time Spent With Patient Time: Total time spent is greater than 50% in coordination of care (as documented) at patient's floor/unit and/or counseling patient:
[2023-02-02] MEDS: POTASSIUM CHLORIDE 40 MEQ in DEXTROSE 5% IN WATER 500 ML IV SCH ×2 (15:57→22:34)
[2023-02-02] MEDS: MAGNESIUM SULFATE 4 GM/100 ML BAG IV SCH ×2 (15:58→22:35)
[2023-02-02] MEDS: SIMVASTATIN 10 MG TABLET PO SCH (20:15)
[2023-02-02] MEDS: traZODone HCL 50 MG TABLET PO PRN (20:15)
[2023-02-02] MEDS: ONDANSETRON 4 MG/2 ML VIAL IV PRN (22:30)
[2023-02-02] MEDS: HYDROmorphone 1 MG/ML SYRINGE IV PRN (22:30)
[2023-02-03] MEDS: PIPERACILLIN SODIUM/TAZOBACTAM 3.375 GM in DEXTROSE 5% IN WATER 50 ML IV SCH ×4 (00:27→17:41)
[2023-02-03] MEDS: METOCLOPRAMIDE 10 MG/2 ML VIAL IV SCH ×4 (00:27→16:59)
[2023-02-03] MEDS: metroNIDAZOLE 500 MG/100 ML BAG IV SCH ×4 (01:15→18:10)
[2023-02-03] MEDS: ACETAMINOPHEN 1,000 MG/100 ML BAG IV SCH ×4 (02:21→16:59)
[2023-02-03] MEDS: 0.9 % SODIUM CHLORIDE 1,000 ML IV SCH (05:22)
[2023-02-03] MEDS: 0.9 % SODIUM CHLORIDE 10 ML SYRINGE IV SCH ×3 (05:36→20:23)
[2023-02-03 06:56] LABS: Basophils # (Auto) 0.02 K/mcL (0.00-0.30); Basophils % (Auto) 0.3 % (0.0-2.0); Eosinophils # (Auto) 0.22 K/mcL (0.00-0.70); Hematocrit 32.7 % (34.1-44.9); Hemoglobin 10.2 g/dL (11.2-15.7); Lymphocytes # (Auto) 0.64 K/mcL (1.50-4.80); Lymphocytes % (Auto) 8.9 % (15.5-49.0); Mean Cell Volume 77.5 fL (80.0-100.0); Mean Corpuscular HGB Conc 31.2 g/dL (31.0-36.0); Mean Platelet Volume 9.1 fL (8.8-12.5); Monocytes # (Auto) 0.61 K/mcL (0.10-0.90); Monocytes % (Auto) 8.4 % (1.0-12.0); Neutrophils % (Auto) 78.7 % (38.0-78.0); Platelet Count 558 K/mcL (140-440); RBC 4.22 M/mcL (3.59-5.38); Red Cell Distribution Width 15.8 % (11.5-14.5); WBC 7.2 K/mcL (4.5-11.0)
[2023-02-03] MEDS: OMEPRAZOLE 20 MG CAPSULE PO SCH (06:59)
[2023-02-03] MEDS: HYDROmorphone 1 MG/ML SYRINGE IV PRN (07:01)
[2023-02-03 07:34] LABS: ALT/SGPT 8 U/L (<40); AST/SGOT 14 U/L (<32); Albumin 2.9 gm/dL (3.2-5.2); Albumin/Globulin Ratio 1.2 (1.0-2.3); Alkaline Phosphatase 75 U/L (39-117); Bilirubin,Direct < 0.2 mg/dL (0-0.3); Bilirubin,Total 0.3 mg/dL (0.1-1.0); Blood Urea Nitrogen 6 mg/dL (8-23); Calcium 8.9 mg/dL (8.6-10.4); Carbon Dioxide 24 mmol/L (22-30); Chloride 105 mmol/L (96-108); Globulin 2.4 gm/dL (2.2-3.7); Glomerular Filtration Rate 91; Glucose 103 mg/dL (70-105); Lactate Dehydrogenase 351 U/L (135-225); Phosphorous 2.2 mg/dL (2.5-4.5); Triglycerides 109 mg/dL (<150); Uric Acid 1.5 mg/dL (2.5-8.0)
[2023-02-03] MEDS: ONDANSETRON 4 MG/2 ML VIAL IV PRN (08:29)
[2023-02-03] MEDS: FUROSEMIDE 40 MG TABLET PO SCH (08:58)
[2023-02-03] MEDS: NEUTRA PHOS 1 PACKET PO SCH ×2 (08:58→20:23)
[2023-02-03] MEDS: ASPIRIN 81 MG TAB.CHEW CHEWED SCH (08:58)
[2023-02-03] MEDS: LOSARTAN 50 MG TABLET PO SCH (08:58)
[2023-02-03] MEDS: TAMSULOSIN 0.4 MG CAPSULE PO SCH (08:58)
[2023-02-03] MEDS: FAMOTIDINE 20 MG TABLET PO SCH ×2 (08:58→20:23)
[2023-02-03] MEDS: amLODIPine 5 MG TABLET PO SCH (08:58)
[2023-02-03] MEDS: PROMETHAZINE 25 MG/ML VIAL IV PRN ×2 (09:15→23:55)
--- NOTE | 2023-02-03 10:17 | XRay Report ---
CLINICAL INFORMATION: f/u of ileus COMPARISON: None. FINDINGS: Small bowel is mildly dilated with scattered air-fluid levels. The colon appears relatively decompressed. No free air or soft tissue mass. IMPRESSION: Nonspecific stool gas pattern. While this likely represents atypical ileus. Distal small bowel obstruction not excluded. Interpreted and Authenticated by: Ady Steel 02/03/23
[2023-02-03] MEDS: IRON POLYSACCHARIDE COMPLEX 150 MG CAPSULE PO SCH (10:29)
[2023-02-03] MEDS: LACTOBACILLUS 1 CAPSULE PO SCH (10:29)
[2023-02-03] MEDS: METHYLNALTREXONE BROMIDE 12 MG/0.6 ML SYRINGE SQ SCH (13:19)
--- NOTE | 2023-02-03 15:18 | General Surgery Progress Note ---
SUBJECTIVE Subjective Patient information: Note initiated : 02/03/23 at 3:14 pm Service Date, if different from initiated Date: [] Patient: Kathy Parks 82 y/o F admitted on 01/29/23 for Bowel Obstruction. Chief Complaint: [] Principal diagnosis: Rectal carcinoma Interval history: Patient is stable and is having flatus but has not had significant bowel movement. She complains of mild nausea. X-ray shows significant residual stool in the colon with mild dilation of her small bowel. White blood count 7.2, hemoglobin 10.2, hematocrit 32.7, potassium 3.4, phosphorus 2.2, BUN and creatinine are normal. Constitutional Vitals: Vital Signs Temp Pulse Resp BP Pulse Ox O2 Del Method O2 Flow Rate 98.6 F 83 16 173/88 100 Room Air 2 02/03/23 12:00 02/03/23 12:00 02/03/23 12:00 02/03/23 12:00 02/03/23 12:00 02/03/23 12:00 02/03/23 06:04 Period Temp Pulse Resp BP Sys/Aquino Pulse Ox O2 Del Method O2 Flow Rate Last 24 Hr 97.7 F-98.6 F 68-85 14-20 145-177/82-89 93-100 Nasal Cannula- Room Air 2-2 Intake and Output 02/03/23 02/03/23 02/03/23 03:59 11:59 19:59 Intake Total 1970 550 250 Output Total 650 320 850 Balance 1320 230 -600 Weight 174 lb Patient Weight 02/04/23 03:59 Weight 174 lb Intake & Output: Intake & Output 02/03/23 02/03/23 02/03/23 03:59 11:59 19:59 Intake Total 1970 550 250 Output Total 650 320 850 Balance 1320 230 -600 Weight 174 lb Intake: IV 1970 250 250 Sodium Chloride 0.9% 1,000 ml @ 1000 50 mls/hr IV .Q20H LISET Rx#: [id number] Zosyn 3.375 gm In Dextrose 5% 50 50 50 in Water 50 ml @ 100 mls/hr IV Q6H LISET Rx#:[id number] Potassium Chloride 40 Meq In 520 Dextrose 5% in Water 500 ml @ 130 mls/hr IV Q4H LISET Rx#: [id number] Oral 300 Output: Urine Catheter Amount 650 300 850 Stool 0 Emesis 20 Other: Urine Appearance Clear Clear Uretheral (Mar) Clear Clear Urine Color Yellow Yellow Uretheral (Mar) Yellow Yellow Urine Odor Uretheral (Mar) Normal Head Head exam: Present atraumatic, normal inspection and normocephalic Eye Eye exam: Present EOMI and PERRL ENT ENT exam: Present normal exam and normal oropharynx Neck Neck exam: Present full ROM; Absent tenderness Respiratory Respiratory exam: Present normal respiratory exam and CTAB Cardiovascular Cardiovascular exam: Present normal rate and rhythm, RRR, +S1 and +S2 GI/Abdominal GI/Abdominal exam: Present normal bowel sounds, distended and tenderness (Mild tenderness right side of abdomen) Additional comments: Stoma is healthy and fully patent Extremities Exam Extremities exam: Present full ROM, normal inspection and neurovascular intact A/P Assessment and plan (1) Carcinoma of rectum, stage 4: Status: Acute (2) Liver metastases: Status: Acute (3) Adynamic ileus: Status: Acute Plan Patient will be given milk of magnesia x4 doses Delay advancement of diet Time Spent With Patient Time: Total time spent is greater than 50% in coordination of care (as documented) at patient's floor/unit and/or counseling patient:
[2023-02-03] MEDS: MAGNESIUM HYDROXIDE 30 ML ORAL.SUSP PO SCH ×2 (15:51→20:22)
[2023-02-03] MEDS: SIMVASTATIN 10 MG TABLET PO SCH (20:23)
[2023-02-03] MEDS: traZODone HCL 50 MG TABLET PO PRN (20:23)
[2023-02-04] MEDS: metroNIDAZOLE 500 MG/100 ML BAG IV SCH ×4 (00:32→17:41)
[2023-02-04] MEDS: PIPERACILLIN SODIUM/TAZOBACTAM 3.375 GM in DEXTROSE 5% IN WATER 50 ML IV SCH ×4 (00:33→17:02)
[2023-02-04] MEDS: ACETAMINOPHEN 1,000 MG/100 ML BAG IV SCH ×4 (00:42→16:59)
[2023-02-04] MEDS: METOCLOPRAMIDE 10 MG/2 ML VIAL IV SCH ×4 (00:43→16:59)
[2023-02-04] MEDS: MAGNESIUM HYDROXIDE 30 ML ORAL.SUSP PO SCH ×5 (00:50→21:29)
[2023-02-04] MEDS: 0.9 % SODIUM CHLORIDE 1,000 ML IV SCH ×2 (02:18→22:28)
[2023-02-04] MEDS: 0.9 % SODIUM CHLORIDE 10 ML SYRINGE IV SCH ×3 (06:04→21:30)
[2023-02-04] MEDS ORDERED: MAGNESIUM HYDROXIDE 30 ML ORAL.SUSP ONE (06:29)
[2023-02-04] MEDS: FUROSEMIDE 40 MG TABLET PO SCH (08:22)
[2023-02-04] MEDS: ASPIRIN 81 MG TAB.CHEW CHEWED SCH (08:22)
[2023-02-04] MEDS: LACTOBACILLUS 1 CAPSULE PO SCH (08:22)
[2023-02-04] MEDS: NEUTRA PHOS 1 PACKET PO SCH ×2 (08:22→21:30)
[2023-02-04] MEDS: amLODIPine 5 MG TABLET PO SCH (08:23)
[2023-02-04] MEDS: FAMOTIDINE 20 MG TABLET PO SCH ×2 (08:23→21:29)
[2023-02-04] MEDS: LOSARTAN 50 MG TABLET PO SCH (08:23)
[2023-02-04] MEDS: TAMSULOSIN 0.4 MG CAPSULE PO SCH (08:23)
[2023-02-04] MEDS: OMEPRAZOLE 20 MG CAPSULE PO SCH (08:23)
[2023-02-04] MEDS: PROMETHAZINE 25 MG/ML VIAL IV PRN ×2 (11:26→22:25)
--- NOTE | 2023-02-04 12:09 | Operative Note ---
DATE OF OPERATION: 01/30/2023 PREOPERATIVE DIAGNOSES: Colorectal obstruction, rectal carcinoma. POSTOPERATIVE DIAGNOSES: Colorectal obstruction with rectal carcinoma. PROCEDURE: Diverting colostomy. SURGEON: René Yates M.D. FINDINGS: Very hard, bulky neoplasm at the rectosigmoid junction at the peritoneal reflection with near total obstruction, dilated colon with normal-sized small bowel. DESCRIPTION OF PROCEDURE: Under general anesthesia, the patient's abdomen was prepped and draped in a sterile field. Timeout procedure was carried out as per protocol. A midline incision was made. Upon entering the peritoneal cavity, the small bowel appeared to be normal in size, but the colon was massively dilated and redundant. The sigmoid was very redundant. It was elected to dissect and transect the colon at the colorectal junction immediately above the neoplasm. The distal sigmoid was mobilized. The bowel was divided immediately above the tumor. It was then oversewed using 2-0 Prolene. The sigmoid was divided and the mesocolon was lucent enough to get easy passage through the abdominal wall. There was a neoplasm or chronic seborrheic tight lesion of the skin immediately between the umbilicus and the anterior superior iliac spine. This was circumferentially excised. The subcutaneous fascia and muscle were divided longitudinally. It was stretched and the bowel was pulled through this opening. The wall of the sigmoid was sutured to the peritoneum and fascia using 2-0 silk. Sponge, needle, instrument, and blade counts were verified as correct. The fascia was closed using running #1 Prolene. Subcutaneous fascia was closed with 2-0 Monocryl. Skin was closed with lauren. The wall of the colon was then sutured to the anterior rectus fascia using interrupted 3-0 silk. The colon was opened and a moderate amount of gas with a small amount of stool escaped. This was suctioned appropriately. The opening was then irrigated until most of the gross stool was removed. The end of the bowel was sutured to the dermis circumferentially using running locking 3-0 Vicryl. A stoma appliance was placed. Tegaderm was placed over the incision. The patient tolerated the procedure well. She was awakened and taken to the postanesthetic care unit in satisfactory condition. LCS:rubio Job ID: [id number] Doc ID: [id number] René Yates M.D.
--- NOTE | 2023-02-04 13:11 | General Surgery Progress Note ---
SUBJECTIVE Subjective Patient information: Note initiated : 02/04/23 at 1:10 pm Service Date, if different from initiated Date: [] Patient: Kathy Parks 82 y/o F admitted on 01/29/23 for Bowel Obstruction. Chief Complaint: [] Principal diagnosis: Rectal carcinoma Interval history: Patient continues to improve. She finally had significant output through her stoma with 2500 cc of measured liquid stool. Her abdomen is distended but much softer. Her stoma looks good. She states that she has less discomfort. Constitutional Vitals: Vital Signs Temp Pulse Resp BP Pulse Ox O2 Del Method O2 Flow Rate 98.5 F 73 20 149/74 94 Room Air 2 02/04/23 12:00 02/04/23 12:00 02/04/23 12:00 02/04/23 12:00 02/04/23 12:00 02/04/23 12:00 02/04/23 04:00 Period Temp Pulse Resp BP Sys/Aquion Pulse Ox O2 Del Method O2 Flow Rate Last 24 Hr 98.1 F-98.8 F 68-84 16-22 145-159/74-86 89-94 Room Air-Room Air 2 Intake and Output 02/04/23 02/04/23 02/04/23 03:59 11:59 19:59 Intake Total 1250 1700 250 Output Total 775 194 5674 Balance 1050 1400 -1750 Intake & Output: Intake & Output 02/04/23 02/04/23 02/04/23 03:59 11:59 19:59 Intake Total 1250 1700 250 Output Total 610 370 7124 Balance 1050 1400 -1750 Intake: IV 1250 250 250 Sodium Chloride 0.9% 1,000 ml @ 1000 50 mls/hr IV .Q20H LISET Rx#: [id number] Zosyn 3.375 gm In Dextrose 5% 50 50 50 in Water 50 ml @ 100 mls/hr IV Q6H LISET Rx#:[id number] Oral 1450 Output: Urine Catheter Amount 250 Stool 50 2000 Emesis 200 Other: Urine Appearance Clear Uretheral (Mar) Clear Clear Urine Color Yellow Uretheral (Mar) Yellow Yellow Urine Odor Uretheral (Mar) Normal Normal Stool Size Small Stool Color Brown Brown Stool Consistency Kathleen Liquid Head Head exam: Present atraumatic, normal inspection and normocephalic Eye Eye exam: Present EOMI and PERRL ENT ENT exam: Present normal exam and normal oropharynx Neck Neck exam: Present full ROM; Absent tenderness Respiratory Respiratory exam: Present normal respiratory exam and CTAB Cardiovascular Cardiovascular exam: Present normal rate and rhythm, RRR, +S1 and +S2 GI/Abdominal GI/Abdominal exam: Present normal bowel sounds, distended and tenderness (Mild tenderness right side of abdomen) Additional comments: Stoma is healthy and fully patent Extremities Exam Extremities exam: Present full ROM, normal inspection and neurovascular intact A/P Assessment and plan (1) Carcinoma of rectum, stage 4: Status: Acute (2) Liver metastases: Status: Acute (3) Adynamic ileus: Status: Acute Plan Patient will be given milk of magnesia x4 doses Delay advancement of diet Time Spent With Patient Time: Total time spent is greater than 50% in coordination of care (as documented) at patient's floor/unit and/or counseling patient:
[2023-02-04] MEDS: HYDROmorphone 1 MG/ML SYRINGE IV PRN ×2 (17:11→22:25)
[2023-02-04] MEDS: SIMVASTATIN 10 MG TABLET PO SCH (21:30)
[2023-02-05] MEDS: METOCLOPRAMIDE 10 MG/2 ML VIAL IV SCH ×5 (00:41→23:37)
[2023-02-05] MEDS: ACETAMINOPHEN 1,000 MG/100 ML BAG IV SCH ×5 (00:41→23:37)
[2023-02-05] MEDS: metroNIDAZOLE 500 MG/100 ML BAG IV SCH ×4 (01:01→16:55)
[2023-02-05] MEDS: PIPERACILLIN SODIUM/TAZOBACTAM 3.375 GM in DEXTROSE 5% IN WATER 50 ML IV SCH ×4 (01:01→16:55)
[2023-02-05] MEDS: MAGNESIUM HYDROXIDE 30 ML ORAL.SUSP PO SCH (01:37)
[2023-02-05] MEDS: 0.9 % SODIUM CHLORIDE 10 ML SYRINGE IV SCH ×3 (06:04→23:03)
[2023-02-05] MEDS: OMEPRAZOLE 20 MG CAPSULE PO SCH (07:42)
[2023-02-05] MEDS: TAMSULOSIN 0.4 MG CAPSULE PO SCH (08:41)
[2023-02-05] MEDS: LOSARTAN 50 MG TABLET PO SCH (08:41)
[2023-02-05] MEDS: FAMOTIDINE 20 MG TABLET PO SCH ×2 (08:41→19:25)
[2023-02-05] MEDS: amLODIPine 5 MG TABLET PO SCH (08:42)
[2023-02-05] MEDS: FUROSEMIDE 40 MG TABLET PO SCH (08:42)
[2023-02-05] MEDS: NEUTRA PHOS 1 PACKET PO SCH ×2 (08:43→19:24)
[2023-02-05] MEDS: ASPIRIN 81 MG TAB.CHEW CHEWED SCH (08:43)
[2023-02-05] MEDS: LACTOBACILLUS 1 CAPSULE PO SCH (08:43)
[2023-02-05] MEDS: HYDROmorphone 1 MG/ML SYRINGE IV PRN ×3 (08:45→22:11)
--- NOTE | 2023-02-05 09:41 | XRay Report ---
CLINICAL INFORMATION: f/u of ileus COMPARISON: 02/03/2023 FINDINGS: Small bowel is mildly dilated with scattered air-fluid levels. Normal amount of air is seen within the colon. No free air or soft tissue mass IMPRESSION: Ileus pattern Interpreted and Authenticated by: Ady Steel 02/05/23
[2023-02-05] MEDS ORDERED: LORazepam 2 MG/ML VIAL IV ONE (11:02)
[2023-02-05] MEDS: ONDANSETRON 4 MG/2 ML VIAL IV PRN ×2 (14:33→22:16)
[2023-02-05] MEDS: 0.9 % SODIUM CHLORIDE 1,000 ML IV SCH (16:56)
--- NOTE | 2023-02-05 16:59 | General Surgery Progress Note ---
SUBJECTIVE Subjective Patient information: Note initiated : 02/05/23 at 4:53 pm Service Date, if different from initiated Date: [] Patient: Kathy Parks 82 y/o F admitted on 01/29/23 for Bowel Obstruction. Chief Complaint: [] Principal diagnosis: Rectal carcinoma Interval history: Patient continues to do well. She has had multiple bowel movements during the day. She has not had any nausea or vomiting. Abdominal x-ray shows dilated loops of small bowel but no evidence of obstruction. The large fecal volume has been expelled through the stoma. Constitutional Vitals: Vital Signs Temp Pulse Resp BP Pulse Ox O2 Del Method O2 Flow Rate 99.3 F H 100 H 16 178/74 92 Room Air 2 02/05/23 11:00 02/05/23 11:00 02/05/23 11:00 02/05/23 12:26 02/05/23 11:00 02/05/23 11:00 02/05/23 04:00 Period Temp Pulse Resp BP Sys/Aquino Pulse Ox O2 Del Method O2 Flow Rate Last 24 Hr 97.5 F-99.3 F 68-100 14-16 127-200/71-101 90-92 Nasal Cannula- Room Air 2 Intake and Output 02/05/23 02/05/23 02/05/23 03:59 11:59 19:59 Intake Total 1840 400 100 Output Total 1151 1250 Balance 689 400 -1150 Weight 177 lb 1.6 oz 177 lb 1.6 oz Patient Weight 02/06/23 03:59 Weight 177 lb 1.6 oz Intake & Output: Intake & Output 02/05/23 02/05/23 02/05/23 03:59 11:59 19:59 Intake Total 1840 400 100 Output Total 1151 1250 Balance 689 400 -1150 Weight 177 lb 1.6 oz 177 lb 1.6 oz Intake: IV 1250 400 100 Sodium Chloride 0.9% 1,000 ml @ 1000 50 mls/hr IV .Q20H LISET Rx#: [id number] Zosyn 3.375 gm In Dextrose 5% 50 100 in Water 50 ml @ 100 mls/hr IV Q6H LISET Rx#:[id number] Oral 590 Output: Urine Catheter Amount 700 Void Amount 150 # of times incontinent of urine 1 Stool 300 1250 Other: Urine Appearance Clear Uretheral (Mar) Clear Clear Urine Color Yellow Uretheral (Mar) Yellow Yellow Urine Odor Normal Uretheral (Mar) Normal Normal Stool Color Brown Stool Consistency Liquid # Voids 1 # Unmeasured Emesis 1 Head Head exam: Present atraumatic, normal inspection and normocephalic Eye Eye exam: Present EOMI and PERRL ENT ENT exam: Present normal exam and normal oropharynx Neck Neck exam: Present full ROM; Absent tenderness Respiratory Respiratory exam: Present normal respiratory exam and CTAB Cardiovascular Cardiovascular exam: Present normal rate and rhythm, RRR, +S1 and +S2 GI/Abdominal GI/Abdominal exam: Present normal bowel sounds, distended and tenderness (Mild tenderness right side of abdomen) Additional comments: Stoma is healthy and fully patent Extremities Exam Extremities exam: Present full ROM, normal inspection and neurovascular intact A/P Assessment and plan (1) Colonic obstruction: Status: Acute (2) Carcinoma of rectum, stage 4: Status: Acute (3) Liver metastases: Status: Acute (4) Adynamic ileus: Status: Acute Plan Well patient has progressed very nicely. She is stable for discharge tomorrow. Sepsis Sepsis Identified: No Time Spent With Patient Time: Total time spent is greater than 50% in coordination of care (as documented) at patient's floor/unit and/or counseling patient:
[2023-02-05] MEDS: traZODone HCL 50 MG TABLET PO PRN (19:25)
[2023-02-05] MEDS: SIMVASTATIN 10 MG TABLET PO SCH (19:25)
[2023-02-06] MEDS: metroNIDAZOLE 500 MG/100 ML BAG IV SCH ×3 (00:19→11:13)
[2023-02-06] MEDS: PIPERACILLIN SODIUM/TAZOBACTAM 3.375 GM in DEXTROSE 5% IN WATER 50 ML IV SCH ×3 (00:20→11:13)
[2023-02-06] MEDS: HYDROmorphone 1 MG/ML SYRINGE IV PRN ×3 (02:59→15:12)
[2023-02-06] MEDS: ACETAMINOPHEN 1,000 MG/100 ML BAG IV SCH ×2 (05:31→11:13)
[2023-02-06] MEDS: METOCLOPRAMIDE 10 MG/2 ML VIAL IV SCH ×2 (05:31→11:12)
[2023-02-06] MEDS: 0.9 % SODIUM CHLORIDE 10 ML SYRINGE IV SCH ×2 (05:32→13:30)
[2023-02-06] MEDS: OMEPRAZOLE 20 MG CAPSULE PO SCH (06:55)
[2023-02-06] MEDS: amLODIPine 5 MG TABLET PO SCH (09:04)
[2023-02-06] MEDS: LOSARTAN 50 MG TABLET PO SCH (09:04)
[2023-02-06] MEDS: FUROSEMIDE 40 MG TABLET PO SCH (09:04)
[2023-02-06] MEDS: FAMOTIDINE 20 MG TABLET PO SCH (09:04)
[2023-02-06] MEDS: ASPIRIN 81 MG TAB.CHEW CHEWED SCH (09:04)
[2023-02-06] MEDS: LACTOBACILLUS 1 CAPSULE PO SCH (09:04)
[2023-02-06] MEDS: TAMSULOSIN 0.4 MG CAPSULE PO SCH (09:05)
[2023-02-06] MEDS: NEUTRA PHOS 1 PACKET PO SCH (09:05)
[2023-02-06] MEDS: 0.9 % SODIUM CHLORIDE 1,000 ML IV SCH (11:14)
--- NOTE | 2023-02-06 12:30 | General Surgery Progress Note ---
SUBJECTIVE Subjective Patient information: Note initiated : 02/06/23 at 12:29 pm Service Date, if different from initiated Date: [] Patient: Kathy Parks 82 y/o F admitted on 01/29/23 for Bowel Obstruction. Chief Complaint: [] Principal diagnosis: Rectal carcinoma Interval history: Patient is doing well. Her appetite is poor. She is tolerating some full liquids and soft foods. Her stoma is functioning normally. Her pain is controlled. Constitutional Vitals: Vital Signs Temp Pulse Resp BP Pulse Ox O2 Del Method O2 Flow Rate 98.2 F 72 16 132/78 93 Room Air 2 02/06/23 11:36 02/06/23 11:36 02/06/23 11:36 02/06/23 11:36 02/06/23 11:36 02/06/23 11:36 02/06/23 04:00 Period Temp Pulse Resp BP Sys/Aquino Pulse Ox O2 Del Method O2 Flow Rate Last 24 Hr 98.2 F-99.5 F 68-95 16-20 128-158/73-88 90-93 Room Air-Room Air 2 Intake and Output 02/06/23 02/06/23 02/06/23 03:59 11:59 19:59 Intake Total 250 2467 Output Total 1999 Balance 250 467 Weight 178 lb 1.6 oz Intake & Output: Intake & Output 02/06/23 02/06/23 02/06/23 03:59 11:59 19:59 Intake Total 250 2467 Output Total 1999 Balance 250 467 Weight 178 lb 1.6 oz Intake: IV 250 1167 Sodium Chloride 0.9% 1,000 ml @ 915 50 mls/hr IV .Q20H LISET Rx#: [id number] Zosyn 3.375 gm In Dextrose 5% 50 52 in Water 50 ml @ 100 mls/hr IV Q6H LISET Rx#:[id number] Oral 1300 Output: Urine Catheter Amount 150 Void Amount 1750 Stool 100 Other: Meal Breakfast Percent of Meal Consumed 75% Feeding Ability Assist with Tray Set Up Urine Appearance Clear Urine Color Light Isabel Urine Odor Normal Stool Size Small Stool Color Brown Stool Consistency Liquid Head Head exam: Present atraumatic, normal inspection and normocephalic Eye Eye exam: Present EOMI ENT ENT exam: Present mucous membranes moist, normal exam and normal oropharynx Neck Neck exam: Present full ROM and normal inspection; Absent tenderness Respiratory Respiratory exam: Present CTAB Cardiovascular Cardiovascular exam: Present normal rate and rhythm, RRR, +S1 and +S2; Absent JVD GI/Abdominal GI/Abdominal exam: Present normal bowel sounds and soft; Absent distended Additional comments: Midline incision is healing nicely Stoma is functioning appropriately Extremities Exam Extremities exam: Present full ROM, normal inspection and neurovascular intact Neurological Exam Neurological exam: Present abnormal gait, alert and oriented X3; Absent motor sensory deficit Psychiatric Psychiatric exam: Present normal affect and normal mood A/P Assessment and plan (1) Carcinoma of rectum, stage 4: Status: Acute (2) Adynamic ileus: Status: Acute (3) Colostomy status: Status: Acute Plan Patient is stable for discharge when she can be accepted for swing bed status Time Spent With Patient Time: Total time spent is greater than 50% in coordination of care (as documented) at patient's floor/unit and/or counseling patient:
--- NOTE | 2023-02-06 12:39 | Discharge Summary ---
Discharge Provider Provider IMPORTANT FOLLOW-UP INFORMATION FOR PCP: Patient information: Note initiated : 02/06/23 at 12:34 pm Service Date, if different from initiated Date: [] Patient: Kathy Parks 82 y/o F admitted on 01/29/23 for Bowel Obstruction. 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 Patient presented with obstructive symptoms and was scheduled for diverting colostomy. This was performed on the day after admission. She had slow return of intestinal function with some stimulation from MiraLAX and milk of magnesia only evacuated 4000 cc. She has done well and is tolerating diet. . She is stable for discharge home Discharge diagnosis: Carcinoma of the rectum stage IV Secondary discharge diagnosis: Total colonic obstruction Adynamic ileus Metastatic liver disease Reason for admission: Total colonic obstruction Procedures: Diverting end colostomy Pertinent studies/significant findings: CT of abdomen and pelvis Complications: None Time Spent with Patient Time attestation: Total time spent providing and/or coordinating discharge services: Time spent: Less than 30 minutes Physical Examination Vital Signs Vital signs: Temp Pulse Resp BP Pulse Ox O2 Del Method O2 Flow Rate 98.2 F 72 16 132/78 93 Room Air 2 02/06/23 11:36 02/06/23 11:36 02/06/23 11:36 02/06/23 11:36 02/06/23 11:36 02/06/23 11:36 02/06/23 04:00 General physical appearance General physical exam: well developed, well nourished, no distress, no pain and chronically ill Eyes Eye exam: PERRL and normal ocular movement ENT ENT exam: normal mucosa Head Head exam IM: Present atraumatic, normal inspection and normocephalic Neck Neck exam: no masses, no bruits, trachea midline, no lymphadenopathy and no venous distension Cardiovascular Cardiovascular exam IM: Present normal rate and rhythm, RRR, +S1 and +S2; Absent JVD Respiratory Respiratory exam: normal expansion, normal respiratory effort and clear to auscultation Abdomen Abdomen: Present soft and tender (Mild tenderness at the midline incision and the stomal area) Integumentary Integumentary: Present no rash, no growths and no abnormal pigmentation Neurologic Neurologic: Present normal coordination and normal sensation Musculoskeletal Musculoskeletal: Present normal gait and normal posture Psychiatric Psychiatric: Present oriented to time, oriented to person, oriented to place, speech is normal and memory intact Discharge Plan Patient/Caregiver Discharge Instructions Activity: increase activity as tolerated Diet: Regular Diet Prescriptions: New oxycodone-acetaminophen [Endocet] 10-325 mg tablet 1 tab PO Q4H PRN (Reason: Pain) Qty: 30 0RF Continued amlodipine 10 mg tablet 5 mg PO QDAY losartan 50 mg tablet 50 mg PO QDAY furosemide 40 mg tablet 40 mg PO QDAY hydrocodone-acetaminophen 5-325 mg tablet 5 tab PO PRN PRN (Reason: pain) polysaccharide iron complex [iFerex 150] 150 mg iron capsule 150 mg PO QDAY famotidine 40 mg tablet 40 mg PO BID tamsulosin 0.4 mg capsule 0.4 mg PO QDAY Culturelle 15 billion cell Capsule, Sprinkle 1 cap PO QDAY pravastatin 20 mg Tablet 20 mg PO HS omeprazole 20 mg capsule,delayed release(DR/EC) 20 mg PO QDAY Other Ambulatory Orders: OT Discharge Order (Routine) Location: None Selected Ordered By: René Yates Physical Therapy at Discharge - General (Routine) Location: None Selected Ordered By: René Yates Prescription drug monitoring program results: PDMP not reviewed Follow Up Plan Follow up with: René Yates MD [Physician] - (Please follow-up in 2 weeks) Patient Disposition: [facility] Swing Bed Prognosis: Serious Rehab Potential: Serious I certify that the patient requires SNF services: Yes Overall status at discharge: patient is not back to baseline Discharge Orders: Discharge Order (Routine); Ordered 02/06/23 Ordered By: René Yates Pending Pending Pending: Resuscitation Status Do Not Resuscitate Diet Full Liquid Diet Start Sat Jan 4 1130 Amlodipine Besylate (Amlodipine 5 Mg Tablet) 5 mg PO DAILY LISET Last Admin: 02/06/23 09:04 Dose: 5 mg Documented By: Admin: 02/05/23 08:42 Dose: 5 mg Documented By: Admin: 02/04/23 08:23 Dose: 5 mg Documented By: Admin: 02/03/23 08:58 Dose: 5 mg Documented By: Admin: 02/02/23 08:26 Dose: 5 mg Documented By: Admin: 02/01/23 09:36 Dose: 5 mg Documented By: Admin: 01/31/23 08:31 Dose: 5 mg Documented By: TRAE Aspirin (Aspirin 81 Mg Tab.Chew) 81 mg CHEWED DAILY [facility] Admin: 02/06/23 09:04 Dose: 81 mg Documented By: Admin: 02/05/23 08:43 Dose: 81 mg Documented By: Admin: 02/04/23 08:22 Dose: 81 mg Documented By: Admin: 02/03/23 08:58 Dose: 81 mg Documented By: Admin: 02/02/23 08:25 Dose: 81 mg Documented By: Admin: 02/01/23 09:37 Dose: Not Given Documented By: Admin: 01/31/23 08:32 Dose: 81 mg Documented By: TRAE Famotidine (Famotidine 20 Mg Tablet) 40 mg PO BID [facility] Admin: 02/06/23 09:04 Dose: 40 mg Documented By: Admin: 02/05/23 19:25 Dose: 40 mg Documented By: Admin: 02/05/23 08:41 Dose: 40 mg Documented By: Admin: 02/04/23 21:29 Dose: 40 mg Documented By: Admin: 02/04/23 08:23 Dose: 40 mg Documented By: Admin: 02/03/23 20:23 Dose: 40 mg Documented By: Admin: 02/03/23 08:58 Dose: 40 mg Documented By: Admin: 02/02/23 20:17 Dose: 40 mg Documented By: Admin: 02/02/23 08:25 Dose: 40 mg Documented By: Admin: 02/01/23 20:28 Dose: 40 mg Documented By: [email or web address] Admin: 02/01/23 09:35 Dose: 40 mg Documented By: Admin: 01/31/23 20:26 Dose: 40 mg Documented By: Admin: 01/31/23 08:31 Dose: 40 mg Documented By: Admin: 01/30/23 20:32 Dose: 40 mg Documented By: GREGORIO Furosemide (Furosemide 40 Mg Tablet) 40 mg PO DAILY [facility] Admin: 02/06/23 09:04 Dose: 40 mg Documented By: Admin: 02/05/23 08:42 Dose: 40 mg Documented By: Admin: 02/04/23 08:22 Dose: 40 mg Documented By: Admin: 02/03/23 08:58 Dose: 40 mg Documented By: Admin: 02/02/23 08:25 Dose: 40 mg Documented By: Admin: 02/01/23 09:35 Dose: 40 mg Documented By: Admin: 01/31/23 08:31 Dose: 40 mg Documented By: TRAE Hydromorphone HCl (Hydromorphone 1 Mg/Ml Syringe) 1 mg IV Q2HP PRN; Protocol PRN Reason: Per Pain Protocol Last Admin: 02/06/23 09:05 Dose: 1 mg Documented By: Admin: 02/06/23 02:59 Dose: 1 mg Documented By: Admin: 02/05/23 22:11 Dose: 1 mg Documented By: Admin: 02/05/23 14:34 Dose: 1 mg Documented By: Admin: 02/05/23 08:45 Dose: 1 mg Documented By: Admin: 02/04/23 22:25 Dose: 1 mg Documented By: Admin: 02/04/23 17:11 Dose: 1 mg Documented By: Admin: 02/03/23 07:01 Dose: 1 mg Documented By: Admin: 02/02/23 22:30 Dose: 1 mg Documented By: Admin: 02/01/23 18:03 Dose: 1 mg Documented By: Admin: 02/01/23 13:05 Dose: 1 mg Documented By: Admin: 02/01/23 06:34 Dose: 1 mg Documented By: Admin: 02/01/23 02:28 Dose: 1 mg Documented By: Admin: 01/31/23 17:49 Dose: 1 mg Documented By: Admin: 01/31/23 14:26 Dose: 1 mg Documented By: Admin: 01/31/23 06:57 Dose: 1 mg Documented By: Admin: 01/31/23 01:48 Dose: 1 mg Documented By: Admin: 01/30/23 21:24 Dose: 1 mg Documented By: Admin: 01/30/23 16:38 Dose: 1 mg Documented By: Admin: 01/30/23 11:36 Dose: 1 mg Documented By: Admin: 01/30/23 00:10 Dose: 1 mg Documented By: Admin: 01/29/23 18:55 Dose: 1 mg Documented By: GRGEORIO Piperacillin Sod/Tazobactam (Sod 3.375 gm/ Dextrose) 50 mls @ 100 mls/hr IV Q6H LISET; Protocol Last Infusion: 02/06/23 11:14 Dose: 0 mls/hr Documented By: Admin: 02/06/23 11:13 Dose: 100 mls/hr Documented By: Infusion: 02/06/23 06:02 Dose: 100 mls/hr Documented By: Admin: 02/06/23 05:32 Dose: 100 mls/hr Documented By: Infusion: 02/06/23 00:50 Dose: 100 mls/hr Documented By: Admin: 02/06/23 00:20 Dose: 100 mls/hr Documented By: Infusion: 02/05/23 17:34 Dose: 0 mls/hr Documented By: Admin: 02/05/23 16:55 Dose: 100 mls/hr Documented By: Infusion: 02/05/23 11:44 Dose: 0 mls/hr Documented By: Admin: 02/05/23 11:07 Dose: 100 mls/hr Documented By: Infusion: 02/05/23 06:38 Dose: 0 mls/hr Documented By: Admin: 02/05/23 05:59 Dose: 100 mls/hr Documented By: Infusion: 02/05/23 01:37 Dose: 0 mls/hr Documented By: Admin: 02/05/23 01:01 Dose: 100 mls/hr Documented By: Infusion: 02/04/23 17:41 Dose: 0 mls/hr Documented By: Admin: 02/04/23 17:02 Dose: 100 mls/hr Documented By: Infusion: 02/04/23 12:52 Dose: 0 mls/hr Documented By: Admin: 02/04/23 12:19 Dose: 100 mls/hr Documented By: Infusion: 02/04/23 06:44 Dose: 0 mls/hr Documented By: Admin: 02/04/23 06:04 Dose: 100 mls/hr Documented By: Infusion: 02/04/23 01:05 Dose: 0 mls/hr Documented By: Admin: 02/04/23 00:33 Dose: 100 mls/hr Documented By: Infusion: 02/03/23 18:11 Dose: 0 mls/hr Documented By: Admin: 02/03/23 17:41 Dose: 100 mls/hr Documented By: Infusion: 02/03/23 13:03 Dose: 0 mls/hr Documented By: [email or web address] Admin: 02/03/23 11:27 Dose: 100 mls/hr Documented By: [email or web address] Infusion: 02/03/23 06:31 Dose: 0 mls/hr Documented By: Admin: 02/03/23 05:30 Dose: 100 mls/hr Documented By: Infusion: 02/03/23 01:00 Dose: 0 mls/hr Documented By: Admin: 02/03/23 00:27 Dose: 100 mls/hr Documented By: Infusion: 02/02/23 18:19 Dose: 0 mls/hr Documented By: Admin: 02/02/23 17:34 Dose: 100 mls/hr Documented By: Infusion: 02/02/23 11:50 Dose: 0 mls/hr Documented By: Admin: 02/02/23 11:18 Dose: 100 mls/hr Documented By: Infusion: 02/02/23 06:31 Dose: 0 mls/hr Documented By: Admin: 02/02/23 05:41 Dose: 100 mls/hr Documented By: Infusion: 02/02/23 00:56 Dose: 100 mls/hr Documented By: Admin: 02/02/23 00:26 Dose: 100 mls/hr Documented By: Infusion: 02/01/23 18:21 Dose: 0 mls/hr Documented By: Admin: 02/01/23 17:35 Dose: 100 mls/hr Documented By: Infusion: 02/01/23 12:11 Dose: 0 mls/hr Documented By: Admin: 02/01/23 11:15 Dose: 100 mls/hr Documented By: Infusion: 02/01/23 06:12 Dose: 0 mls/hr Documented By: Admin: 02/01/23 05:04 Dose: 100 mls/hr Documented By: Infusion: 02/01/23 00:00 Dose: 0 mls/hr Documented By: Admin: 01/31/23 23:20 Dose: 100 mls/hr Documented By: Infusion: 01/31/23 18:22 Dose: 0 mls/hr Documented By: Admin: 01/31/23 17:36 Dose: 100 mls/hr Documented By: Infusion: 01/31/23 11:58 Dose: 0 mls/hr Documented By: Admin: 01/31/23 11:07 Dose: 100 mls/hr Documented By: Infusion: 01/31/23 08:32 Dose: 0 mls/hr Documented By: Admin: 01/31/23 05:47 Dose: 100 mls/hr Documented By: Infusion: 01/31/23 00:02 Dose: 0 mls/hr Documented By: Admin: 01/30/23 23:12 Dose: 100 mls/hr Documented By: Infusion: 01/30/23 18:25 Dose: 0 mls/hr Documented By: Admin: 01/30/23 17:51 Dose: 100 mls/hr Documented By: Infusion: 01/30/23 11:58 Dose: 0 mls/hr Documented By: Admin: 01/30/23 11:21 Dose: 100 mls/hr Documented By: Infusion: 01/30/23 05:35 Dose: 0 mls/hr Documented By: Admin: 01/30/23 05:03 Dose: 100 mls/hr Documented By: Infusion: 01/30/23 01:20 Dose: 0 mls/hr Documented By: Admin: 01/30/23 00:49 Dose: 100 mls/hr Documented By: GREGORIO Metronidazole (Flagyl) 500 mg in 100 mls @ 100 mls/hr IV Q6H LISET; Protocol Last Infusion: 02/06/23 11:13 Dose: 0 mls/hr Documented By: Admin: 02/06/23 11:13 Dose: 100 mls/hr Documented By: Infusion: 02/06/23 07:00 Dose: 0 mls/hr Documented By: Admin: 02/06/23 05:31 Dose: 100 mls/hr Documented By: Infusion: 02/06/23 01:19 Dose: 100 mls/hr Documented By: Admin: 02/06/23 00:19 Dose: 100 mls/hr Documented By: Infusion: 02/05/23 17:43 Dose: 0 mls/hr Documented By: Admin: 02/05/23 16:55 Dose: 100 mls/hr Documented By: Infusion: 02/05/23 12:10 Dose: 0 mls/hr Documented By: Admin: 02/05/23 11:07 Dose: 100 mls/hr Documented By: Infusion: 02/05/23 06:38 Dose: 0 mls/hr Documented By: Admin: 02/05/23 05:59 Dose: 100 mls/hr Documented By: Infusion: 02/05/23 02:04 Dose: 0 mls/hr Documented By: Admin: 02/05/23 01:01 Dose: 100 mls/hr Documented By: Infusion: 02/04/23 19:01 Dose: 0 mls/hr Documented By: Admin: 02/04/23 17:41 Dose: 100 mls/hr Documented By: Infusion: 02/04/23 12:21 Dose: 0 mls/hr Documented By: Admin: 02/04/23 11:24 Dose: 100 mls/hr Documented By: Infusion: 02/04/23 07:21 Dose: 0 mls/hr Documented By: Admin: 02/04/23 06:03 Dose: 100 mls/hr Documented By: Infusion: 02/04/23 02:16 Dose: 0 mls/hr Documented By: Admin: 02/04/23 00:32 Dose: 100 mls/hr Documented By: Infusion: 02/03/23 19:13 Dose: 0 mls/hr Documented By: Admin: 02/03/23 18:10 Dose: 100 mls/hr Documented By: Infusion: 02/03/23 13:03 Dose: 0 mls/hr Documented By: [email or web address] Admin: 02/03/23 11:27 Dose: 100 mls/hr Documented By: [email or web address] Infusion: 02/03/23 06:31 Dose: 0 mls/hr Documented By: Admin: 02/03/23 05:15 Dose: 100 mls/hr Documented By: Infusion: 02/03/23 02:18 Dose: 0 mls/hr Documented By: Admin: 02/03/23 01:15 Dose: 100 mls/hr Documented By: Infusion: 02/02/23 20:36 Dose: 0 mls/hr Documented By: Admin: 02/02/23 19:36 Dose: 100 mls/hr Documented By: Infusion: 02/02/23 13:57 Dose: 0 mls/hr Documented By: Admin: 02/02/23 12:54 Dose: 100 mls/hr Documented By: Infusion: 02/02/23 06:41 Dose: 0 mls/hr Documented By: Admin: 02/02/23 05:41 Dose: 100 mls/hr Documented By: Infusion: 02/02/23 01:26 Dose: 100 mls/hr Documented By: Admin: 02/02/23 00:26 Dose: 100 mls/hr Documented By: Infusion: 02/01/23 18:34 Dose: 100 mls/hr Documented By: Admin: 02/01/23 17:34 Dose: 100 mls/hr Documented By: Infusion: 02/01/23 13:57 Dose: 0 mls/hr Documented By: Admin: 02/01/23 12:17 Dose: 100 mls/hr Documented By: Infusion: 02/01/23 06:12 Dose: 0 mls/hr Documented By: Admin: 02/01/23 05:04 Dose: 100 mls/hr Documented By: Infusion: 02/01/23 00:25 Dose: 0 mls/hr Documented By: Admin: 01/31/23 23:20 Dose: 100 mls/hr Documented By: Infusion: 01/31/23 18:40 Dose: 0 mls/hr Documented By: Admin: 01/31/23 17:37 Dose: 100 mls/hr Documented By: Infusion: 01/31/23 12:14 Dose: 0 mls/hr Documented By: Admin: 01/31/23 11:07 Dose: 100 mls/hr Documented By: Infusion: 01/31/23 08:32 Dose: 0 mls/hr Documented By: Admin: 01/31/23 05:47 Dose: 100 mls/hr Documented By: Infusion: 01/31/23 00:15 Dose: 0 mls/hr Documented By: Admin: 01/30/23 23:12 Dose: 100 mls/hr Documented By: Infusion: 01/30/23 18:55 Dose: 0 mls/hr Documented By: [email or web address] Admin: 01/30/23 17:51 Dose: 100 mls/hr Documented By: Infusion: 01/30/23 13:35 Dose: 0 mls/hr Documented By: Admin: 01/30/23 11:20 Dose: 100 mls/hr Documented By: Infusion: 01/30/23 06:55 Dose: 0 mls/hr Documented By: Admin: 01/30/23 05:03 Dose: 100 mls/hr Documented By: Infusion: 01/30/23 00:35 Dose: 0 mls/hr Documented By: Admin: 01/29/23 23:33 Dose: 100 mls/hr Documented By: Infusion: 01/29/23 18:57 Dose: 0 mls/hr Documented By: Admin: 01/29/23 17:50 Dose: 100 mls/hr Documented By: SEAN Acetaminophen ([facility]) 1,000 mg in 100 mls @ 200 mls/hr IV Q6 LISET; Protocol Last Admin: 02/06/23 11:13 Dose: 200 mls/hr Documented By: Infusion: 02/06/23 06:25 Dose: 0 mls/hr Documented By: Admin: 02/06/23 05:31 Dose: 200 mls/hr Documented By: Infusion: 02/06/23 00:07 Dose: 200 mls/hr Documented By: Admin: 02/05/23 23:37 Dose: 200 mls/hr Documented By: Infusion: 02/05/23 17:18 Dose: 0 mls/hr Documented By: Admin: 02/05/23 16:26 Dose: 200 mls/hr Documented By: Infusion: 02/05/23 11:46 Dose: 0 mls/hr Documented By: Admin: 02/05/23 11:06 Dose: 200 mls/hr Documented By: Infusion: 02/05/23 06:38 Dose: 0 mls/hr Documented By: Admin: 02/05/23 06:03 Dose: 200 mls/hr Documented By: Infusion: 02/05/23 01:18 Dose: 0 mls/hr Documented By: Admin: 02/05/23 00:41 Dose: 200 mls/hr Documented By: Infusion: 02/04/23 17:40 Dose: 0 mls/hr Documented By: Admin: 02/04/23 16:59 Dose: 200 mls/hr Documented By: Infusion: 02/04/23 12:04 Dose: 0 mls/hr Documented By: Admin: 02/04/23 11:36 Dose: 200 mls/hr Documented By: Infusion: 02/04/23 06:41 Dose: 0 mls/hr Documented By: Admin: 02/04/23 06:04 Dose: 200 mls/hr Documented By: Infusion: 02/04/23 02:16 Dose: 0 mls/hr Documented By: Admin: 02/04/23 00:42 Dose: 200 mls/hr Documented By: Infusion: 02/03/23 17:41 Dose: 0 mls/hr Documented By: Admin: 02/03/23 16:59 Dose: 200 mls/hr Documented By: Infusion: 02/03/23 13:03 Dose: 0 mls/hr Documented By: [email or web address] Admin: 02/03/23 11:28 Dose: 200 mls/hr Documented By: [email or web address] Infusion: 02/03/23 07:41 Dose: 0 mls/hr Documented By: [email or web address] Admin: 02/03/23 06:59 Dose: 200 mls/hr Documented By: [email or web address] Infusion: 02/03/23 02:55 Dose: 0 mls/hr Documented By: Admin: 02/03/23 02:21 Dose: 200 mls/hr Documented By: Infusion: 02/02/23 19:24 Dose: 0 mls/hr Documented By: Admin: 02/02/23 18:15 Dose: 200 mls/hr Documented By: Infusion: 02/02/23 12:56 Dose: 0 mls/hr Documented By: Admin: 02/02/23 12:00 Dose: 200 mls/hr Documented By: Infusion: 02/02/23 05:58 Dose: 0 mls/hr Documented By: Admin: 02/02/23 05:09 Dose: 200 mls/hr Documented By: Infusion: 02/02/23 00:26 Dose: 200 mls/hr Documented By: Admin: 02/01/23 23:56 Dose: 200 mls/hr Documented By: Infusion: 02/01/23 18:09 Dose: 0 mls/hr Documented By: Admin: 02/01/23 17:00 Dose: 200 mls/hr Documented By: Infusion: 02/01/23 12:11 Dose: 0 mls/hr Documented By: Admin: 02/01/23 11:15 Dose: 200 mls/hr Documented By: Infusion: 02/01/23 07:23 Dose: 0 mls/hr Documented By: Admin: 02/01/23 06:11 Dose: 200 mls/hr Documented By: Infusion: 02/01/23 00:01 Dose: 0 mls/hr Documented By: Admin: 01/31/23 23:20 Dose: 200 mls/hr Documented By: Infusion: 01/31/23 19:00 Dose: 0 mls/hr Documented By: Admin: 01/31/23 18:28 Dose: 200 mls/hr Documented By: Infusion: 01/31/23 13:37 Dose: 0 mls/hr Documented By: Admin: 01/31/23 12:09 Dose: 200 mls/hr Documented By: TRAE Sodium Chloride (Sodium Chloride 0.9%) 1,000 mls @ 50 mls/hr IV .Q20H [facility] Admin: 02/06/23 11:14 Dose: 50 mls/hr Documented By: Infusion: 02/06/23 11:14 Dose: 50 mls/hr Documented By: Admin: 02/05/23 16:56 Dose: 50 mls/hr Documented By: Infusion: 02/05/23 16:56 Dose: 50 mls/hr Documented By: Admin: 02/04/23 22:28 Dose: 50 mls/hr Documented By: Infusion: 02/04/23 22:18 Dose: 50 mls/hr Documented By: Admin: 02/04/23 02:18 Dose: 50 mls/hr Documented By: Infusion: 02/04/23 01:22 Dose: 50 mls/hr Documented By: Admin: 02/03/23 05:22 Dose: 50 mls/hr Documented By: Infusion: 02/03/23 03:25 Dose: 50 mls/hr Documented By: Admin: 02/02/23 07:25 Dose: 50 mls/hr Documented By: Infusion: 02/02/23 07:25 Dose: 50 mls/hr Documented By: Admin: 02/01/23 12:15 Dose: 50 mls/hr Documented By: TRAE Lactobacillus Rhamnosus (Lactobacillus 1 Capsule) 1 cap PO DAILY [facility] Admin: 02/06/23 09:04 Dose: 1 cap Documented By: Admin: 02/05/23 08:43 Dose: 1 cap Documented By: Admin: 02/04/23 08:22 Dose: 1 cap Documented By: Admin: 02/03/23 10:29 Dose: 1 cap Documented By: Admin: 02/02/23 08:26 Dose: 1 cap Documented By: Admin: 02/01/23 09:35 Dose: 1 cap Documented By: Admin: 01/31/23 08:31 Dose: 1 cap Documented By: TRAE Losartan Potassium (Losartan 50 Mg Tablet) 50 mg PO QAM [facility] Admin: 02/06/23 09:04 Dose: 50 mg Documented By: Admin: 02/05/23 08:41 Dose: 50 mg Documented By: Admin: 02/04/23 08:23 Dose: 50 mg Documented By: Admin: 02/03/23 08:58 Dose: 50 mg Documented By: Admin: 02/02/23 08:28 Dose: 50 mg Documented By: Admin: 02/01/23 09:35 Dose: 50 mg Documented By: Admin: 01/31/23 08:31 Dose: 50 mg Documented By: TRAE Metoclopramide HCl (Metoclopramide 10 Mg/2 Ml Vial) 10 mg IV Q6 [facility] Admin: 02/06/23 11:12 Dose: 10 mg Documented By: Admin: 02/06/23 05:31 Dose: 10 mg Documented By: Admin: 02/05/23 23:37 Dose: 10 mg Documented By: Admin: 02/05/23 16:27 Dose: 10 mg Documented By: Admin: 02/05/23 11:54 Dose: 10 mg Documented By: Admin: 02/05/23 06:07 Dose: 10 mg Documented By: Admin: 02/05/23 00:41 Dose: 10 mg Documented By: Admin: 02/04/23 16:59 Dose: 10 mg Documented By: Admin: 02/04/23 11:26 Dose: Not Given Documented By: Admin: 02/04/23 06:18 Dose: 10 mg Documented By: Admin: 02/04/23 00:43 Dose: 10 mg Documented By: Admin: 02/03/23 16:59 Dose: 10 mg Documented By: Admin: 02/03/23 11:28 Dose: 10 mg Documented By: Admin: 02/03/23 05:34 Dose: 10 mg Documented By: Admin: 02/03/23 00:27 Dose: 10 mg Documented By: Admin: 02/02/23 17:30 Dose: 10 mg Documented By: Admin: 02/02/23 11:16 Dose: 10 mg Documented By: Admin: 02/02/23 05:41 Dose: 10 mg Documented By: Admin: 02/01/23 23:56 Dose: 10 mg Documented By: Admin: 02/01/23 17:34 Dose: 10 mg Documented By: Admin: 02/01/23 14:05 Dose: 10 mg Documented By: TRAE Omeprazole (Omeprazole 20 Mg Capsule) 20 mg PO ACB [facility] Admin: 02/06/23 06:55 Dose: 20 mg Documented By: Admin: 02/05/23 07:42 Dose: 20 mg Documented By: Admin: 02/04/23 08:23 Dose: 20 mg Documented By: Admin: 02/03/23 06:59 Dose: 20 mg Documented By: Admin: 02/02/23 07:24 Dose: 20 mg Documented By: Admin: 02/01/23 07:23 Dose: 20 mg Documented By: Admin: 01/31/23 08:32 Dose: Not Given Documented By: TRAE Ondansetron HCl (Ondansetron 4 Mg/2 Ml Vial) 4 mg IV Q6HP PRN PRN Reason: Nausea And Vomiting Last Admin: 02/05/23 22:16 Dose: 4 mg Documented By: Admin: 02/05/23 14:33 Dose: 4 mg Documented By: Admin: 02/03/23 08:29 Dose: 4 mg Documented By: Admin: 02/02/23 22:30 Dose: 4 mg Documented By: Admin: 02/01/23 08:59 Dose: 4 mg Documented By: TRAE Potassium/Phosphorus/Sodium (Neutra Phos 1 Packet) 2 packet PO BID [facility] Last Admin: 02/06/23 09:05 Dose: 2 packet Documented By: Admin: 02/05/23 19:24 Dose: 2 packet Documented By: Admin: 02/05/23 08:43 Dose: 2 packet Documented By: Admin: 02/04/23 21:30 Dose: 2 packet Documented By: Admin: 02/04/23 08:22 Dose: 2 packet Documented By: Admin: 02/03/23 20:23 Dose: 2 packet Documented By: Admin: 02/03/23 08:58 Dose: 2 packet Documented By: Admin: 02/02/23 20:17 Dose: 2 packet Documented By: Admin: 02/02/23 08:25 Dose: 2 packet Documented By: Admin: 02/01/23 20:28 Dose: 2 packet Documented By: Admin: 02/01/23 16:26 Dose: 2 packet Documented By: TRAE Promethazine HCl (Promethazine 25 Mg/Ml Vial) 12.5 mg IV Q6HP PRN PRN Reason: Nausea And Vomiting Last Admin: 02/04/23 22:25 Dose: 12.5 mg Documented By: Admin: 02/04/23 11:26 Dose: 12.5 mg Documented By: Admin: 02/03/23 23:55 Dose: 12.5 mg Documented By: Admin: 02/03/23 09:15 Dose: 12.5 mg Documented By: Admin: 01/29/23 18:56 Dose: 12.5 mg Documented By: GREGORIO Simvastatin (Simvastatin 10 Mg Tablet) 10 mg PO HS [facility] Last Admin: 02/05/23 19:25 Dose: 10 mg Documented By: Admin: 02/04/23 21:30 Dose: 10 mg Documented By: Admin: 02/03/23 20:23 Dose: 10 mg Documented By: Admin: 02/02/23 20:15 Dose: 10 mg Documented By: Admin: 02/01/23 20:28 Dose: 10 mg Documented By: Admin: 01/31/23 20:26 Dose: 10 mg Documented By: Admin: 01/30/23 20:32 Dose: 10 mg Documented By: GREGORIO Sodium Chloride (0.9 % Sodium Chloride 10 Ml Syringe) 10 ml IV Q8 [facility] Admin: 02/06/23 05:32 Dose: 10 ml Documented By: Admin: 02/05/23 23:03 Dose: Not Given Documented By: Admin: 02/05/23 12:11 Dose: Not Given Documented By: Admin: 02/05/23 06:04 Dose: Not Given Documented By: Admin: 02/04/23 21:30 Dose: Not Given Documented By: Admin: 02/04/23 13:00 Dose: Not Given Documented By: Admin: 02/04/23 06:04 Dose: Not Given Documented By: Admin: 02/03/23 20:23 Dose: Not Given Documented By: Admin: 02/03/23 13:09 Dose: 10 ml Documented By: [email or web address] Admin: 02/03/23 05:36 Dose: Not Given Documented By: Admin: 02/02/23 20:15 Dose: Not Given Documented By: Admin: 02/02/23 14:58 Dose: Not Given Documented By: Admin: 02/02/23 05:09 Dose: Not Given Documented By: Admin: 02/01/23 20:29 Dose: Not Given Documented By: Admin: 02/01/23 14:05 Dose: Not Given Documented By: Admin: 02/01/23 06:12 Dose: Not Given Documented By: Admin: 01/31/23 21:16 Dose: Not Given Documented By: Admin: 01/31/23 13:39 Dose: Not Given Documented By: Admin: 01/31/23 05:47 Dose: Not Given Documented By: [email or web address] Admin: 01/30/23 20:32 Dose: 10 ml Documented By: Admin: 01/30/23 13:35 Dose: Not Given Documented By: Admin: 01/30/23 05:00 Dose: Not Given Documented By: Admin: 01/29/23 20:39 Dose: 10 ml Documented By: GREGORIO Tamsulosin HCl (Tamsulosin 0.4 Mg Capsule) 0.4 mg PO QDAY LISET Last Admin: 02/06/23 09:05 Dose: 0.4 mg Documented By: Admin: 02/05/23 08:41 Dose: 0.4 mg Documented By: Admin: 02/04/23 08:23 Dose: 0.4 mg Documented By: Admin: 02/03/23 08:58 Dose: 0.4 mg Documented By: [email or web address] Admin: 02/02/23 08:25 Dose: 0.4 mg Documented By: Admin: 02/01/23 09:35 Dose: 0.4 mg Documented By: Admin: 01/31/23 08:32 Dose: 0.4 mg Documented By: TRAE Trazodone HCl (Trazodone Hcl 50 Mg Tablet) 25 mg PO HSP PRN PRN Reason: Insomnia Last Admin: 02/05/23 19:25 Dose: 25 mg Documented By: Admin: 02/03/23 20:23 Dose: 25 mg Documented By: Admin: 02/02/23 20:15 Dose: 25 mg Documented By: ROBERT Shift Summary 02/05/23 13:42 Shift Summary by Isabel Chance Primary Diagnosis: Total Rectal Obstruction Registration Status: MS [facility] Pertinent Medical Dx/Issue(s): Rectum carcinoma Stage IV, Liver metastases, colonic obstruction, HTN, Ostomy, Hx CVA, DVT and PE Med management (antibiotics, diuretics, BP): Zosyn, Flagyl, Losartan, Norvasc, Reglan, Relistor, Neutra-Phos Skin/Wound Care: Ostomy to LLQ draining liquidly stool; Midline Abd dressing C/D/I both changed this shift Vital Signs with Trends: had a high bp today 200/101 taken manually MD notified and ordered ativan 0.5mg x1 and repeat in 4 hours if needed BP came down to 194/98 on recheck after administration Pain management (acute vs. chronic): Scheduled Ofirmev; Dilaudid x1 Lab/Rad (abnormal, trends): No new labs ordered at this time; 02/03/23 - K: 3.4; BUN: 6; Creat: 0.5; Hct: 32.7; Hgb: 10.2; Ma.6; Phos: 2.2 02/05-2v Abd XR: FINDINGS: Small bowel is mildly dilated with scattered air-fluid levels. Normal amount of air is seen within the colon. No free air or soft tissue mass IMPRESSION: Ileus pattern Neuro/Mental Status: Alert and Oriented x4. Urinary Elimination Device: Mar draining yellow colored urine without s/s of retention Urinary output greater than 30mL/hr? Yes. Date of last BM: 02/04/23 - Pt had 1250 mls of liquid brown stool out her ostomy this shift. Pt's ostomy bag was changed 02/05 Lines/Tubes: IV to LFA and RFA NS@ 50mls/hr and intermittent ABX Activity: Q2 hrs repositioning Questions/recommendations for MD: Discharge Plan (needs, disposition, etc): Pt/ family to d/c home with family and HH when medically cleared. Initialized on 02/05/23 13:42 - END OF NOTE
[2023-02-06] MEDS: ONDANSETRON 4 MG/2 ML VIAL IV PRN (15:12)
[2023-02-06] MEDS ORDERED: PROMETHAZINE 25 MG/ML VIAL IM SCH (16:03)
[2023-02-06] MEDS ORDERED: ACETAMINOPHEN 325 MG TABLET PO ONE ×2 (17:31→17:33)
== END 2023-02-06 17:36 | disposition other institution (70) | DRG 330 ==
LOC: ICU 15:37
PROVIDERS: ADMIT Family Medicine Adult Medicine; ATTEND Family Medicine Adult Medicine